=== PATIENT | female | born 1945 | race Caucasian/White ===

== ENCOUNTER → 2016-06-23 | Outpatient (CLI) | payer OTHER ==
[~2016-06-23] MED LIST: ACET-1138 PO; ACET-24 PO; AMOX500C3 PO; AMT50 PO; ASPEC325 PO; CALC500C70 PO; FAMO20TA11 PO; LISI-787 PO; MULT-506 PO; NAPR1TAB48 PO; OMEG10007 PO; TNR50 PO; ULT50X PO; ZCR20 PO; [UNRECOGNIZED DRUG - CODE] PO
[2016-06-23 11:16] LABS: ALT/SGPT 55 U/L (12-78); AST/SGOT 26 U/L (15-37); BLOOD UREA NITROGEN 16 mg/dl (7-18); BUN/CREATININE RATIO 17.5 (10-20); CALCIUM 9.9 mg/dl (8.5-10.1); CARBON DIOXIDE 32 mmol/L (21-32); CHLORIDE 104 mmol/L (98-107); CREATININE 0.93 mg/dl (0.60-1.20); GLUCOSE 106 mg/dl (70-99); POTASSIUM 4.5 mmol/L (3.5-5.1); SODIUM 141 mmol/L (136-145)
[2016-06-23 11:19] LABS: ALB/GLOB RATIO 1.3 (0.9-2); ALKALINE PHOSPHATASE 61 U/L (45-117)
== END | disposition home or self-care (01) ==
LOC: C.LAB 09:38
PROVIDERS: ATTEND Family Medicine
DX: R74.8 Abnormal levels of other serum enzymes (principal)

== ENCOUNTER 2016-07-23 08:15 | Inpatient (IN) | payer OTHER ==
[2016-06-23 08:52] VITALS: BMI 35.0
--- NOTE | 2016-06-23 09:33 | PAT Medication Instructions ---
Service Date Jun 23, 2016. Current Home Medication List Amitriptyline Hcl (Elavil), 50 MG PO HS Amoxicillin (Amoxil), 4 CAP PO before dental visit Atenolol (Atenolol), 1 TAB PO HS Calcium/Vitamin D (Os-Eric 500 Plus D), 1 TAB PO QAM Famotidine (Pepcid), 20 MG PO HS Fish Oil (Gillette-3), 1 CAP PO QAM Lisinopril/Hctz (Zestoretic 20MG/12.5MG), 1 TAB PO QAM Multivitamin (Multivitamin), 1 TAB PO QAM Naproxen (Naprosyn), 375 MG PO BID Simvastatin (Simvastatin), 1 TAB PO HS Medication Instructions For Your Scheduled Surgery - Hold the following medications 7-10 days prior to surgery per surgeon instructions: Naproxen (Naprosyn), 375 MG PO BID. Fish Oil (Gillette-3), 1 CAP PO QAM - Hold the following medications the morning of surgery: Multivitamin (Multivitamin), 1 TAB PO QAM Lisinopril/Hctz (Zestoretic 20MG/12.5MG), 1 TAB PO QAM Calcium/Vitamin D (Os-Eric 500 Plus D), 1 TAB PO QAM Amoxicillin (Amoxil), 4 CAP PO before dental visit - Take the following medications as scheduled the night before surgery: Simvastatin (Simvastatin), 1 TAB PO HS Famotidine (Pepcid), 20 MG PO HS Atenolol (Atenolol), 1 TAB PO HS Amitriptyline Hcl (Elavil), 50 MG PO HS If you have any questions please call us at [phone] or [phone] ( [place]) or [phone]
--- NOTE | 2016-06-23 10:09 | DIAGNOSTIC IMAGING REPORT ---
CHEST PREADMISSION(PA/LAT) CLINICAL HISTORY: PAT preoperative evaluation COMPARISON STUDY: No previous studies for comparison. FINDINGS: Mild diffuse parenchymal fibrosis. No acute infiltrate. Diaphragms smooth. IMPRESSION: Chronic parenchymal fibrosis. No acute process. Electronically signed by: Abhijit Oliveira M.D. 06/23/2016 10:08 AM Dictated Date/Time: 06/23/2016 10:07 AM
[2016-06-23 10:54] LABS: BASO % 0.7 %; BASO ABS # 0.07 K/uL (0-0.2); COMPLETE YES; HEMATOCRIT 45.6 % (37-47); IG% 0.2 %; LYMPH % 15.7 %; LYMPH ABS # 1.54 K/uL (1.2-3.4); MEAN CELL VOLUME 88.2 fL (80-100); MEAN CORPUSCULAR HEMOGLOBIN 30.8 pg (25-34); MEAN CORPUSCULAR HGB CONC 34.9 g/dl (32-36); MEAN PLATELET VOLUME 9.6 fL (7.4-10.4); MONO % 6.7 %; NEUT % 73.7 %; PLATELET COUNT 232 K/uL (130-400); RED BLOOD COUNT 5.17 M/uL (4.2-5.4); WHITE BLOOD COUNT 9.84 K/uL (4.8-10.8)
[2016-06-23 11:13] LABS: PROTHROMBIN TIME (PATIENT) 10.8 SECONDS (9.0-12.0)
--- NOTE | 2016-07-17 10:48 | HISTORY & PHYSICAL EXAMINATION ---
DATE OF ADMISSION: 07/23/2016 CHIEF COMPLAINT: Right knee pain. HISTORY OF PRESENT ILLNESS: A 71-year-old female who presents for surgical treatment of her right knee. She has got a fairly long history of bilateral knee pain and discomfort, right side greater than left. She has been through extensive conservative treatment including oral medicines as well as injections. The shots have become less successful over time. The left side is more manageable. The right side has not been. She describes pain all the time. The more she walks, the more she hurts. She limps more as the day goes on. She would like to have her right knee replaced. Of note, the patient does have a history of a left hip replacement done by Dr. Jara in 2000, its got a a little bit of polyethylene wear and fairly mild pain on that side. PAST MEDICAL HISTORY: 1. Hypertension. 2. Elevated cholesterol. 3. Obesity with a BMI of 35. 4. Gastroesophageal reflux disease. 5. Arthritis. 6. Fatty liver disease. PREVIOUS SURGICAL HISTORY: Include: 1. Cholecystectomy. 2. Tubal ligation. 3. Left hip replacement done by Dr. Jara 2000. ALLERGIES: EPINEPHRINE. CURRENT MEDICINES: 1. Lisinopril/hydrochlorothiazide 20/12.5 once a day. 2. Naproxen 325 twice a day. 3. Simvastatin 20 mg a day. 4. Amitriptyline 50 mg a day. 5. Atenolol 50 mg a day. 6. Calcium with Vitamin D. 7. Amoxicillin before dental work. SOCIAL HISTORY: A 71-year-old female. She is . Medical doctor is Dr. Nicolas. FAMILY HISTORY: Noncontributory. REVIEW OF SYSTEMS: Negative for diabetes, neurologic problems, vascular problems or bleeding disorders. No history of DVT or PE. PHYSICAL EXAMINATION: GENERAL: Reveals a healthy pleasant, middle-aged female. She looks to be in reasonably good health. HEAD, EYES, EARS, NOSE, AND THROAT EXAMINATION: Benign. NECK: Supple. No lymphadenopathy. LUNGS: Clear to auscultation. HEART: Regular rate and rhythm. ABDOMEN: Soft, nontender, nondistended. EXTREMITY EXAMINATION: Grossly neurovascularly intact except as follows: Examination of both lower extremities reveals the patient walks with a slight bit of a limp. Examination of the right knee reveals slight varus alignment. She does have bony hypertrophy medially. Range of motion about 5 degrees short of full extension to about 120 degrees of flexion. Kind of stiff on flexion. Small knee effusion. X-RAYS: X-rays of the right knee revealed advanced right knee tricompartmental DJD. She has got complete loss of her medial joint space. She has got osteophytes off the medial femoral condyle and medial tibial plateau. He has multiple loose bodies in her knee as well. ASSESSMENT: A 71-year-old female with advanced bilateral knee degenerative joint disease, right side more symptomatic than the left. She is status post a hip replacement on the left side with some poly wear. Her right knee is clearly limiting her more than anything and she would like to have it replaced. She has failed conservative treatment. PLAN: We are going to take her to the operating room and do a right total knee replacement. The risks and benefits of this procedure were explained to the patient and include but not limited to DVT, PE, , infection, neurological injury, vascular injury, bleeding, pain, limited range of motion, stiffness, failure to relieve her symptoms, incomplete relief of symptoms, need for further surgery in the future, fracture, leg length inequality, nerve palsy, persistent pain, etc. The patient understands and desires to proceed. Informed consent was obtained. We did talk to her about holding her lisinopril the morning of surgery. She should take her atenolol. She has also been instructed to stop her Naprosyn 10 days preop. As far as discharge plans, she is planning to be discharged to home using a [facility] home health program. Her is going to assist in her care. I will see her back 2 weeks postop.
[2016-07-23] VITALS (9 sets, daily range): BP systolic 112–157; BP diastolic 64–76; PULSE 65–82; TEMP 36.4–36.9; O2SAT 96–100; Ht 162.6 cm; Wt 92.6 kg
[~2016-07-23] VITALS: Ht 162.6 cm; Wt 92.6 kg
[~2016-07-23 08:15] MED LIST changes: -ACET-1138 PO; -ACET-24 PO; +ACETAMINOPHEN 500 MG TAB PO SCH; -ASPEC325 PO; +BUPIVACAINE 0.25% 30 ML VIAL ONE; +BUPIVACAINE 0.5 % 5 MG/1 ML PF 10ML VIAL ONE; +BUPIVACAINE LIPOSOME 266 MG, BUPIVACAINE/EPINEPHRINE INJ 50 ML, SODIUM CHLORIDE 0.9% PF... INFIL SCH; +CEFAZOLIN 2000 MG/60 ML D5W 60 ML IV SCH; +FAMOTIDINE 20 MG TAB PO SCH; +GABAPENTIN 300 MG CAP PO SCH; +LACTATED RINGER'S 1000ML 1,000 ML IV SCH; +LACTATED RINGER'S 1000ML 500 ML IV ONE; +LACTATED RINGER'S 1000ML IV SCH; +METOCLOPRAMIDE HCL 10 MG TAB PO SCH; +SCOPOLAMINE 1.5 MG TDSY TD SCH; +TRANEXAMIC ACID INJ 1,000 MG in SODIUM CHLORIDE 0.9% 100ML 100 ML IV SCH; -ULT50X PO; -[UNRECOGNIZED DRUG - CODE] PO
--- NOTE | 2016-07-23 09:30 | History & Physical Bridge Note ---
H&P Re-Evaluation Bridge Note: I have examined the patient, reviewed the History & Physical and in the interval since the performance of the History & Physical I have noted the following changes of clinical significance: No changes noted
[2016-07-23] MEDS ORDERED: ATROPINE SULFATE 0.1 MG/ML 5ML SYR IV PRN (10:30)
[2016-07-23] MEDS ORDERED: EpHEDrine SULFATE INJ 50 MG/ML AMP IV PRN (10:30)
[2016-07-23] MEDS ORDERED: MEPERIDINE HCL 25 MG/ML CARP IV PRN (10:30)
[2016-07-23] MEDS ORDERED: ONDANSETRON INJ 2 MG/ML 2 ML VIAL IV PRN ×2 (10:30→14:30)
[2016-07-23] MEDS ORDERED: HYDROmorphone INJ 1 MG/ML SYR IV PRN (10:30)
[2016-07-23] MEDS ORDERED: LABETALOL HCL IV 5 MG/ML 20ML IV PRN (10:30)
[2016-07-23] MEDS ORDERED: FENTANYL CITRATE INJ 50 MCG/1 ML 2 ML VIAL IV PRN (10:30)
[2016-07-23] MEDS ORDERED: LIDOCAINE HCL 2% 2 ML VIAL (20MG/ML) ONE (10:50)
[2016-07-23] MEDS ORDERED: PROPOFOL IV EMULSION 10 MG/ML 20 ML VIAL IV ONE (10:50)
[2016-07-23] MEDS ORDERED: MIDAZOLAM HCL 1 MG/ML 2ML VIAL ONE ×2 (11:01)
[2016-07-23] MEDS ORDERED: BACITRACIN 50000 UNIT VIAL ONE (12:34)
[2016-07-23] MEDS ORDERED: BUPIVACAINE/EPINEPHRINE 0.25% 1:200,000 30 ML VIAL ONE (12:34)
[2016-07-23] MEDS ORDERED: SODIUM CHLORIDE 0.9% PF 50 ML VIAL ONE (12:34)
[2016-07-23] MEDS ORDERED: BUPIVACAINE LIPOSOME 1/3% 266 MG/20 ML VIAL INFIL ONE (12:34)
--- NOTE | 2016-07-23 14:25 | [facility] Post Operative Brief Note ---
Immediate Operative Summary Operative Date July 23, 2016. Pre-Operative Diagnosis Right Knee Advanced Tricompartmental Degenerative Joint Disease Post-Operative Diagnosis Right Knee Advanced Tricompartmental Degenerative Joint Disease Procedure(s) Performed Right Total Knee Arthroplasty Surgeon Dr. Richardson Movie Star Surgeon(s) ASHWIN Bell Estimated Blood Loss 50 cc Findings Right Knee DJD Fluids (cc crystalloids) 1600 cc Specimens A. Right Knee Bone and Tissue Drains None Anesthesia Spinal Complication(s) None Disposition Recovery Room / PACU
[2016-07-23] MEDS ORDERED: SILVER SULFADIAZINE 1% CR 50 GM JAR EXT PRN (14:30)
[2016-07-23] MEDS ORDERED: ALUMINUM/MAGNESIUM/SIMETH (MAALOX MAX) 30 ML UDC PO PRN (14:30)
[2016-07-23] MEDS ORDERED: HYDROmorphone INJ 0.5 MG/0.5 ML SYR IV PRN (14:30)
[2016-07-23] MEDS ORDERED: MAGNESIUM HYDROXIDE SUSP 30 ML UDC PO PRN (14:30)
[2016-07-23] MEDS ORDERED: TRAMADOL HCL 50 MG TAB PO PRN (14:30)
[2016-07-23] MEDS ORDERED: METOCLOPRAMIDE HCL INJ 5 MG/ML 2 ML VIAL IV PRN (14:30)
[2016-07-23] MEDS ORDERED: ZOLPIDEM TARTRATE 5 MG TAB PO PRN (14:30)
[2016-07-23] MEDS ORDERED: BISACODYL 10 MG SUPP PR PRN (14:30)
--- NOTE | 2016-07-23 14:53 | DIAGNOSTIC IMAGING REPORT ---
RIGHT KNEE 1 OR 2 VIEWS ROUTINE CLINICAL HISTORY: AP/LATERAL IN PACU RIGHT KNEE Right joint replacement COMPARISON: None. DISCUSSION: Anatomic alignment status post total right knee replacement. Good contact between prosthetic and underlying bone. Expected soft tissue postoperative change. IMPRESSION: Anatomic alignment status post total right knee replacement. Electronically signed by: Abhijit Oliveira M.D. 07/23/2016 2:52 PM Dictated Date/Time: 07/23/2016 2:51 PM
--- NOTE | 2016-07-23 15:40 | Anesthesiology Progress Note ---
Anesthesia Post Op Note Date & Time July 23, 2016 at 15:40 Vital Signs Pain Intensity: 0 Vital Signs Past 12 Hours Date Time Temp Pulse Resp B/P Pulse Ox O2 Delivery O2 Flow Rate FiO2 07/23/16 15:30 108/61 07/23/16 15:26 73 16 98 07/23/16 15:26 74 16 07/23/16 15:21 73 15 07/23/16 15:21 73 15 97 07/23/16 15:16 72 16 96 07/23/16 15:16 73 16 07/23/16 15:15 123/52 07/23/16 15:13 73 16 98 07/23/16 15:13 73 16 07/23/16 15:10 100/59 07/23/16 15:08 77 17 100 07/23/16 15:08 77 17 07/23/16 15:05 129/45 07/23/16 15:03 36.6 07/23/16 15:03 72 18 99 07/23/16 15:03 72 18 07/23/16 15:02 74 18 07/23/16 15:02 73 18 97 07/23/16 15:00 106/57 07/23/16 14:57 78 19 100 07/23/16 14:57 77 19 07/23/16 14:55 102/48 07/23/16 14:52 76 15 100 07/23/16 14:52 78 15 07/23/16 14:50 111/49 07/23/16 14:47 78 19 100 07/23/16 14:47 77 19 07/23/16 14:46 75 17 07/23/16 14:46 74 17 100 07/23/16 14:45 107/76 07/23/16 14:41 75 18 100 07/23/16 14:41 80 18 07/23/16 14:40 76 17 07/23/16 14:40 77 17 113/54 100 07/23/16 14:35 80 19 114/76 100 07/23/16 14:35 81 19 07/23/16 14:30 36.2 85 20 110/52 99 Mask 10 07/23/16 14:30 83 17 07/23/16 14:30 83 17 110/52 100 07/23/16 08:35 36.7 82 18 141/76 96 Room Air Notes Mental Status: alert / awake / arousable, participated in evaluation Pt Amnestic to Procedure: Yes Nausea / Vomiting: adequately controlled Pain: adequately controlled Airway Patency, RR, SpO2: stable & adequate BP & HR: stable & adequate Hydration State: stable & adequate Neuraxial Anesthesia: was administered, sensory block is resolving Anesthetic Complications: no major complications apparent
[2016-07-23] MEDS: CHECK SCOPOLAMINE PATCH PLACEMENT SCH ×2 (16:00→23:38)
[2016-07-23] MEDS: ACETAMINOPHEN 500 MG TAB PO SCH ×2 (16:37→23:38)
[2016-07-23] MEDS: D5W AND 1/2NSS + 20MEQ KCL 1,000 ML IV SCH (16:37)
[2016-07-23] MEDS: FERROUS GLUCONATE 324 MG TAB PO SCH (17:45)
[2016-07-23] MEDS: KETOROLAC TROMETHAMINE 15 MG/ML VIAL IV. SCH ×2 (17:46→23:38)
--- NOTE | 2016-07-23 19:22 | PROGRESS NOTE ---
DATE: 07/23/2016 SUBJECTIVE: A 71-year-old white female postop from a right knee replacement. She is just starting to get feeling in her leg. Denies any chest pain or shortness of breath. Feeling pretty tired and fatigued. OBJECTIVE: VITAL SIGNS: Temperature 36.4. Vital signs stable. GENERAL: Reveals a healthy pleasant elderly female. She is lying flat in bed. Looks pretty groggy. LUNGS: Clear to auscultation. HEART: Regular rate and rhythm. ABDOMEN: Soft, nontender, nondistended. EXTREMITIES: Grossly neurovascularly intact except as follows: Examination of the right leg reveals it to be well aligned. She can dorsiflex and plantarflex her foot appropriately. She is neurologically intact. IMAGING: X-rays of the right knee from recovery room reviewed. It shows a cemented stabilized total knee arthroplasty. Components looked to be in good position. No signs of problems. ASSESSMENT: A 71-year-old white female postop from a right knee replacement, doing pretty well. Just starting to get the feeling back in her leg, but she is neurologically and clinically intact. Pain is controlled. PLAN: 1. DVT prophylaxis including thigh-high TEDs, SCDs, and aspirin twice a day. 2. PT/OT. Weightbearing as tolerated. Right total knee protocol. 3. Pain control. Doing well with current pain regimen. 4. Disposition: She is planning to be discharged to home likely with some home health once adequately recovered. 5. IV antibiotics 24 hours.
[2016-07-23] MEDS: CEFAZOLIN IV 2,000 MG in DEXTROSE 5% 50ML 50 ML IV SCH (19:29)
[2016-07-23] MEDS ORDERED: TRANEXAMIC ACID INJ 1,000 MG in SODIUM CHLORIDE 0.9% 100ML 100 ML IV SCH (20:30)
[2016-07-23] MEDS: AMITRIPTYLINE HCL 50 MG TAB PO SCH (21:00)
[2016-07-23] MEDS: ASPIRIN 325 MG ECTAB PO SCH (21:00)
[2016-07-23] MEDS: FAMOTIDINE 20 MG TAB PO SCH (21:00)
[2016-07-23] MEDS: SIMVASTATIN 20 MG TAB PO SCH (21:00)
[2016-07-23] MEDS: DOCUSATE SODIUM 100 MG CAP PO SCH (21:00)
--- NOTE | 2016-07-23 22:39 | OPERATIVE REPORT ---
DATE OF OPERATION: 07/23/2016 SURGEON: Dwight Richardson MD VIDEO SYSTEM REPAIRER: Robert Luna PA-C. PREOPERATIVE DIAGNOSIS: Right knee degenerative joint disease. POSTOPERATIVE DIAGNOSIS: Same. PROCEDURE PERFORMED: Right cemented posterior stabilized total knee arthroplasty. COMPLICATIONS: None. ESTIMATED BLOOD LOSS: 50 mL FLUID REPLACEMENT: 1600 mL crystalloid fluid replacement. TOURNIQUET TIME: 57 minutes at 300 mmHg. ANESTHESIA: Spinal with adductor canal block. DRAINS: None. SPECIMENS: Right knee sent for pathology. OPERATIVE INDICATIONS: The patient is a 71-year-old female, who has had a fairly long history of bilateral knee pain and discomfort. She has been through extensive conservative care. Both knees are hurting quite a bit, but the right knee was a bit worse than the left. She elected to proceed with right total knee arthroplasty. OPERATIVE FINDINGS: Operative findings revealed advanced right knee DJD. She had extensive grade 4 changes in the medial compartment. She had diffuse grade 4 changes elsewhere. She had multiple loose bodies throughout the knee. A moderate-sized knee effusion. OPERATIVE IMPLANTS: Operative implants consisted of: 1. A Biomet Vanguard size 62.5 right posterior stabilized femoral component. 2. A Biomet size 67 tibial tray. 3. A 10 mm posterior stabilized polyethylene insert. 4. A 31 x 8 all poly patella. OPERATIVE PROCEDURE: The patient taken to the operating room, identified and placed on the operating table in supine position. All contact areas were appropriately padded. IV antibiotics were provided by the anesthesia team. A spinal anesthetic had been implemented in holding area. Gonzales catheter was placed in a sterile fashion. The right lower extremity was then prepped and draped in the usual sterile fashion. The right leg was elevated and exsanguinated with Esmarch and tourniquet was placed at 300 mmHg. An anterior approach to the right knee was then performed through a longitudinal incision centered over the patella. Sharp dissection was carried out through the subcutaneous tissues down to the level of the extensor mechanism. A medial parapatellar arthrotomy incision was made. Some subperiosteal dissection was carried out medially. A fat pad was resected from beneath the patellar tendon. The lateral patellofemoral ligament was released. The patella was everted and knee was flexed. The osteophytes were taken off the distal femur. The ACL was absent. The PCL was released from the distal femur and the tibia subluxated anteriorly. The external tibial alignment jig was then placed in the anterior face of the tibia and adjusted 16 mm medially. A proximal tibial cut was made to remove about 2-3 mm of bone from the most deficient aspect of the medial tibial plateau. Tibia was sized to a size 67. Some osteophytes were taken off medial and posteromedially. Attention was then drawn to the femur. The distal femur was entered with a sharp drill bit. The intramedullary canal was suctioned. A right 5-degree valgus cutting guide was placed. A distal femoral cutting block was pinned in place. A distal femoral cut was made to take an additional 3 mm of bone off the distal femur. The femur was then sized to a size 62.5. We did downsize this slightly. The AP cutting block was pinned parallel to the epicondylar axis, which was 3 degrees of external rotation. The anterior cut, anterior chamfer, posterior cut, posterior chamfer cuts were made. Box cutting guide was placed and adjusted slightly laterally. The box cut was made. The knee was flexed. The remnants of the medial and lateral menisci were excised. The osteophytes were taken off the posterior aspect of the femur. There were multiple loose bodies in the back of her knee, which were removed. A trial femoral component was placed. The tibial tray was pinned in maximum external rotation and drill and stem punch were used to create defect in the proximal tibia for the tibial tray. The knee was then trialed and the 10-mm insert fit most appropriately. Attention was then drawn to the patella. The patella was cleaned of all soft tissues. Patella was very thin. Patellar thickness measured 15 mm and was cut down to about 11. It was sized to a size 31 patella. Lug holes were drilled for the 31 patella. A lateral osteophyte was removed. Patella button was placed. Knee was taken through range of motion and the patella tracked nicely with no thumbs test. Attention was then drawn toward placement of permanent components. All trial components were removed. A bone plug was placed in the distal femur to limit blood loss. A double batch of Palacos G cement was mixed. A right size 62.5 posterior stabilized component, a size 67 tibial tray, a 10-mm posterior stabilized polyethylene insert, and a 31 x 8 all poly patella were then cemented in place. Knee was brought out into full extension until the cement hardened. A final cement check was then performed. The pericapsular tissues were injected with a total of 100 mL of a combination of 20 mL of Exparel, 30 mL normal saline, 50 mL of 0.25% Marcaine with epinephrine. The patient did receive 1 gram of tranexamic acid. The tourniquet was then let down for final tourniquet time 57 minutes. Hemostasis was assured with use of electrocautery. The extensor mechanism was then closed with a combination of #1 PDS suture and #1 Vicryl suture in a [id number] fashion. The extensor mechanism was checked and found to be intact. The subcutaneous tissues were then closed with 2-0 Dexon suture in a buried interrupted fashion. The skin was closed with skin deedee. The leg was then cleaned and dried and a sterile dressing with Xeroform, 4 x 4, sterile cast padding and Mateo bandage were applied. The patient then transferred to the recovery room in stable condition. The patient tolerated the procedure well with no complications. All needle and sponge counts were correct at the end of the operation. I attest to the content of the Intraoperative Record and any orders documented therein. Any exceptio ns are noted below.
[2016-07-24] VITALS (8 sets, daily range): BP systolic 113–146; BP diastolic 62–83; PULSE 67–89; TEMP 35.4–37; O2SAT 92–99
[2016-07-24] MEDS: D5W AND 1/2NSS + 20MEQ KCL 1,000 ML IV SCH ×2 (01:48→12:02)
[2016-07-24] MEDS: CEFAZOLIN IV 2,000 MG in DEXTROSE 5% 50ML 50 ML IV SCH (03:54)
[2016-07-24] MEDS: KETOROLAC TROMETHAMINE 15 MG/ML VIAL IV. SCH ×4 (05:34→23:28)
[2016-07-24 06:26] LABS: HEMATOCRIT 39.1 % (37-47); MEAN CELL VOLUME 89.7 fL (80-100); MEAN CORPUSCULAR HGB CONC 34.5 g/dl (32-36); MEAN PLATELET VOLUME 9.2 fL (7.4-10.4); PLATELET COUNT 213 K/uL (130-400); RED BLOOD COUNT 4.36 M/uL (4.2-5.4); WHITE BLOOD COUNT 11.01 K/uL (4.8-10.8)
[2016-07-24 06:57] LABS: BUN/CREATININE RATIO 11.9 (10-20); CALCIUM 8.6 mg/dl (8.5-10.1); CREATININE 0.91 mg/dl (0.60-1.20); POTASSIUM 4.3 mmol/L (3.5-5.1)
[2016-07-24] MEDS: CHECK SCOPOLAMINE PATCH PLACEMENT SCH ×3 (08:26→23:07)
[2016-07-24] MEDS: FERROUS GLUCONATE 324 MG TAB PO SCH ×3 (08:27→17:57)
[2016-07-24] MEDS: ACETAMINOPHEN 500 MG TAB PO SCH ×3 (08:27→23:28)
--- NOTE | 2016-07-24 08:45 | PROGRESS NOTE ---
DATE: 07/24/2016 DATE: 07/24/2016. SUBJECTIVE: A 71-year-old white female postop day 1 from right knee replacement. She is doing pretty well. Had quite a bit of pain last evening but doing better this morning. No chest pain or shortness of breath. Not feeling dizzy or lightheaded. OBJECTIVE: VITAL SIGNS: Temperature 36.5. Vital signs stable. PHYSICAL EXAMINATION: GENERAL: Reveals a pleasant elderly female. She is lying in bed, looks reasonably comfortable. EXTREMITIES: Examination of right leg reveals the dressing to be clean, dry and intact. She can dorsiflex and plantarflex her foot appropriately. She is neurologically intact. LABORATORY DATA: Hemoglobin 13.5. Hematocrit 39.1. White cell count 11.01. Electrolytes are stable. ASSESSMENT: A 71-year-old white female postop day 1 from a right total knee replacement, doing reasonably well. Pain is under reasonable control. She is neurologically intact. PLAN: 1. DVT prophylaxis including thigh-high TEDs, SCDs, and aspirin twice a day. 2. PT/OT. Weightbearing as tolerated. Right total knee protocol. 3. Pain control. Doing pretty well with current pain regimen. We are going to have to limit narcotics to avoid confusion issues and side effects. 4. Disposition. She is planning to be discharged home with likely some home health once adequately recovered.
[2016-07-24] MEDS ORDERED: MULTIVITAMIN TAB PO SCH (09:00)
[2016-07-24] MEDS: MULTIVITAMIN TAB PO SCH (09:20)
[2016-07-24] MEDS: PANTOprazole SOD 40 MG TAB PO SCH (09:20)
[2016-07-24] MEDS: DOCUSATE SODIUM 100 MG CAP PO SCH ×2 (09:21→21:29)
[2016-07-24] MEDS: ASPIRIN 325 MG ECTAB PO SCH ×2 (09:21→21:29)
[2016-07-24] MEDS: CALCIUM 600MG + VIT D 400 IU TAB PO SCH (09:21)
[2016-07-24] MEDS ORDERED: ULT50X PO (19:35)
[2016-07-24] MEDS ORDERED: ACET-1138 PO (19:35)
[2016-07-24] MEDS ORDERED: ASPEC325 PO (19:35)
--- NOTE | 2016-07-24 19:38 | Discharge Instructions ---
Discharge Instructions Date of Service July 24, 2016. Admission Reason for Admission: RightKnee Pain, Localized, Primary Osteoarthritis Discharge Discharge Diagnosis / Problem: Right Knee Replacement Discharge Goals Goal(s): Decrease discomfort, Improve function, Increase independence, Improve disease control, Therapeutic intervention Activity Recommendations Activity Limitations: per Instructions/Follow-up section Weightbearing Status: Right weightbearing . Instructions / Follow-Up Instructions / Follow-Up ACTIVITY RECOMMENDATIONS: Physical Therapy: * You will go to physical therapy three times each week for four to six weeks after your surgery in order to regain your knee range of motion and to retrain your knee to work properly. * It is just as important to make sure you are getting your knee perfectly straight as it is to regain your knee bend. * Taking a pain pill an hour before therapy can help you have a more productive and comfortable therapy session. Home Exercise: * You were shown a series of exercises (heel props, heel slides, etc.) in the hospital. Do these exercises three to four times each day including the exercises you were shown in physical therapy. Walking: * Get up and walk several times each day. For the first four weeks, try not to stand or walk for more than one hour at a time. If you do stand or walk for more than one hour, you will not hurt anything, but your knee and leg will likely swell. * As you feel comfortable, you may change from the walker or crutches to a cane and then to independent walking. MEDICATIONS: New Medicine: * You will likely be taking one or more of these medications: 1. Tramadol - A quick and shorter-acting pain medication. Take one to two tablets every four to six hours to lessen your pain. 2. Aspirin - Thins your blood to lessen the chance of forming a blood clot. * The most common side effects of pain medicine and iron are nausea and constipation. If nausea or constipation is too much of a problem or if you have any questions about your new medicines or doses, call [facility] at [phone]. We will try to help you manage these issues. VERY IMPORTANT TO READ AND REVIEW" Pain: * The immediate post-operative period after knee replacement surgery is often quite painful. * You are given a prescription for pain medicine. You should take it, as directed, when you need it, especially before physical therapy and before going to bed. Pain that interferes with sleep is very common and can last several months. * You will likely need pain medicine for the first four to six weeks. It will not stop all of the pain. The pain will lessen and as you feel better, you may change to milder pain medicine such as Tylenol. * The most common side effects of pain medicine are nausea and constipation, so don't take more than you need. SPECIAL CARE INSTRUCTIONS: TEDs/Elastic Stockings: * The white elastic stockings help limit swelling and prevent blood clots from forming in your legs. The more you wear them, the more they work. * Wear them for six weeks after knee replacement surgery and four weeks after partial knee replacement. Prevention of Infection: * Take antibiotics one hour before any dental cleaning, dental work, urological procedure, gastrointestinal procedure or any invasive surgery in order to prevent your new joint from getting infected. * You may get the antibiotics from the doctor performing the procedure or you may call our office at before and we will call in a prescription to the pharmacy of your choice. Things to Watch For: * Drainage from the incision site that occurs more than one week after your surgery. * Severely increased knee/leg pain or swelling. * Increased redness at the incision site. * Fever above 102 degrees Fahrenheit. * Unusual chest pain or shortness of breath. * Unusual pain or burning with urination. Call [facility] at with any of the above problems or if you have any questions about your medicines or recovery. FOLLOW UP VISIT: Make an appointment to see your doctor for approximately two weeks after surgery for a progress check and staple removal by calling the office at . Current Hospital Diet Patient's current hospital diet: Regular Diet Discharge Diet Recommended Diet: Regular Diet Procedures Procedures Performed: Right Total Knee Arthroplasty Pending Studies Studies pending at discharge: no Medical Emergencies . Who to Call and When: Medical Emergencies: If at any time you feel your situation is an emergency, please call [phone] immediately. . Non-Emergent Contact Non-Emergency issues call your: Surgeon . "Provider Documentation" section prepared by Dwight Richardson. . VTE Core Measure Inpt VTE Proph given/why not?: Other Anticoagulation, T.E.D. Stockings, SCD's
[2016-07-24] MEDS: AMITRIPTYLINE HCL 50 MG TAB PO SCH (21:51)
[2016-07-24] MEDS: SIMVASTATIN 20 MG TAB PO SCH (21:51)
[2016-07-24] MEDS: FAMOTIDINE 20 MG TAB PO SCH (21:52)
[2016-07-25] MEDS: KETOROLAC TROMETHAMINE 15 MG/ML VIAL IV. SCH (05:23)
[2016-07-25 06:31] VITALS: BP 117/70; PULSE 65; TEMP 36.5; O2SAT 95
[2016-07-25] MEDS: ACETAMINOPHEN 500 MG TAB PO SCH (07:36)
[2016-07-25] MEDS: CALCIUM 600MG + VIT D 400 IU TAB PO SCH (07:36)
[2016-07-25] MEDS: FERROUS GLUCONATE 324 MG TAB PO SCH (07:36)
[2016-07-25] MEDS: ASPIRIN 325 MG ECTAB PO SCH (07:37)
[2016-07-25] MEDS: PANTOprazole SOD 40 MG TAB PO SCH (07:37)
[2016-07-25] MEDS: MULTIVITAMIN TAB PO SCH (07:37)
[2016-07-25] MEDS: DOCUSATE SODIUM 100 MG CAP PO SCH (08:21)
--- NOTE | 2016-07-25 09:24 | PROGRESS NOTE ---
DATE: 07/25/2016 DATE: 07/25/2016. SUBJECTIVE: A 71-year-old white female postop day 2 from right knee replacement. She is doing pretty well. Pain is a little better this morning. No chest pain or shortness of breath. Not feeling dizzy or lightheaded. OBJECTIVE: VITAL SIGNS: Temperature is 36.5. Vital signs stable. PHYSICAL EXAMINATION: GENERAL: Reveals a healthy, pleasant middle-aged female. She is sitting up in bed, looks pretty comfortable. LUNGS: Clear to auscultation. HEART: Regular rate and rhythm. ABDOMEN: Soft, nontender, nondistended. EXTREMITY EXAMINATION: Grossly neurovascularly intact except as follows: Examination of the right leg reveals the leg to be well aligned. Dressing is clean, dry and intact. She can dorsiflex and plantarflex her foot appropriately. She is neurologically intact. ASSESSMENT: A 71-year-old white female postop day 2 from right knee replacement, doing pretty well. Pain has been improved. PLAN: 1. DVT prophylaxis including thigh-high TEDs, SCDs, and aspirin twice a day. 2. PT/OT. Weightbearing as tolerated. Right total knee protocol. 3. Pain control. Doing well with current pain regimen. 4. Disposition. Plan to discharge to home with some home health if therapy goes okay today and adequately recovered.
[2016-07-25 09:36] VITALS: BP 117/70; PULSE 65; TEMP 36.5; O2SAT 95
--- NOTE | 2016-07-28 09:28 | DISCHARGE SUMMARY ---
ADMITTING PHYSICIAN: Dr. Richardson. ADMITTING DIAGNOSIS: Right knee degenerative joint disease. SURGERY PERFORMED: Right total knee arthroplasty. SECONDARY DIAGNOSIS: Noncontributory. CONSULTS: None obtained. HISTORY AND PHYSICAL EXAMINATION: Well documented in the patient's chart. HOSPITAL COURSE: The patient was admitted to [facility] on 07/23/2016 and underwent a right total knee arthroplasty. She tolerated the procedure well. There were no complications with the surgery. She was then transferred to PACU postoperatively and later to the orthopedic floor for further care. She was given Ancef and antibiotics prophylaxis. ANA LUISA hose stocking, SCDs and aspirin for DVT prophylaxis. Hemoglobin, hematocrit and vital signs were monitored during her hospital stay and remained stable. She did not require any blood transfusions. There were no complications. By postop day #2 she was tolerating a normal regular diet. Pain was well controlled with oral pain medication. She was participating in physical therapy. No signs of any DVTs or other complications. On postop day 2 she was discharged to home in good condition and set up with home health services. She was given printed discharge instructions including prescriptions for aspirin 325 mg b.i.d., Percocet for pain medication. She can continue with home medicines. Continue with physical therapy. She is weightbearing as tolerated on her left leg. Followup with Dr. Richarsdon in 10-12 days postoperative for suture removal and evaluation. Call sooner to the office if any other problems arise.
[2016-09-28] MEDS ORDERED: [UNRECOGNIZED DRUG - CODE] PO (11:13)
== END 2016-07-25 10:30 | disposition home health service (06) | DRG 470 ==
LOC: ENRESERVTM → ENRESERVDT → C.ACU 08:15 → C.3E 09:15
PROVIDERS: ADMIT Orthopaedic Surgery Sports Medicine; ATTEND Orthopaedic Surgery Sports Medicine
PROC: 0SRC0J9 Replacement of Right Knee Joint with Synthetic Substitute, Cemented, Open Approach (ICD-10-PCS; principal; 2016-07-23 10:30)
PROC: 0SCC0ZZ Extirpation of Matter from Right Knee Joint, Open Approach (ICD-10-PCS; principal; 2016-07-23 10:30)
DX: M17.0 Bilateral primary osteoarthritis of knee (principal); I10 Essential (primary) hypertension; E66.9 Obesity, unspecified; E78.00 Pure hypercholesterolemia, unspecified; Z79.899 Other long term (current) drug therapy; Z68.35 Body mass index [BMI] 35.0-35.9, adult; Z96.642 Presence of left artificial hip joint

== ENCOUNTER → 2016-10-14 | Outpatient (CLI) | payer OTHER ==
[~2016-10-14] MED LIST changes: +ACET-24 PO; -ACETAMINOPHEN 500 MG TAB PO SCH; +ASPEC325 PO; -BUPIVACAINE 0.25% 30 ML VIAL ONE; -BUPIVACAINE 0.5 % 5 MG/1 ML PF 10ML VIAL ONE; -BUPIVACAINE LIPOSOME 266 MG, BUPIVACAINE/EPINEPHRINE INJ 50 ML, SODIUM CHLORIDE 0.9% PF... INFIL SCH; -CEFAZOLIN 2000 MG/60 ML D5W 60 ML IV SCH; -FAMOTIDINE 20 MG TAB PO SCH; -GABAPENTIN 300 MG CAP PO SCH; -LACTATED RINGER'S 1000ML 1,000 ML IV SCH; -LACTATED RINGER'S 1000ML 500 ML IV ONE; -LACTATED RINGER'S 1000ML IV SCH; -METOCLOPRAMIDE HCL 10 MG TAB PO SCH; -NAPR1TAB48 PO; -SCOPOLAMINE 1.5 MG TDSY TD SCH; -TRANEXAMIC ACID INJ 1,000 MG in SODIUM CHLORIDE 0.9% 100ML 100 ML IV SCH; +ULT50X PO; +[UNRECOGNIZED DRUG - CODE] PO
[2016-10-14 13:09] LABS: BASO % 1.5 %; BASO ABS # 0.12 K/uL (0-0.2); COMPLETE YES; HEMATOCRIT 43.1 % (37-47); IG% 0.3 %; LYMPH % 19.9 %; LYMPH ABS # 1.55 K/uL (1.2-3.4); MEAN CELL VOLUME 90.5 fL (80-100); MEAN CORPUSCULAR HEMOGLOBIN 31.5 pg (25-34); MEAN CORPUSCULAR HGB CONC 34.8 g/dl (32-36); MEAN PLATELET VOLUME 9.3 fL (7.4-10.4); NEUT % 65.3 %; PLATELET COUNT 251 K/uL (130-400); RED BLOOD COUNT 4.76 M/uL (4.2-5.4); WHITE BLOOD COUNT 7.78 K/uL (4.8-10.8)
[2016-10-14 13:15] LABS: PROTHROMBIN TIME (PATIENT) 10.6 SECONDS (9.0-12.0)
[2016-10-14 14:12] LABS: BLOOD UREA NITROGEN 14 mg/dl (7-18); C-REACTIVE PROTEIN < 0.29 mg/dl (0-0.29); CALCIUM 9.5 mg/dl (8.5-10.1); CARBON DIOXIDE 30 mmol/L (21-32); CHLORIDE 103 mmol/L (98-107); GLUCOSE 92 mg/dl (70-99); POTASSIUM 4.3 mmol/L (3.5-5.1); SODIUM 141 mmol/L (136-145)
== END | disposition home or self-care (01) ==
LOC: C.LAB 10:34
PROVIDERS: ATTEND Orthopaedic Surgery Sports Medicine
DX: Z01.818 Encounter for other preprocedural examination (principal)

== ENCOUNTER 2016-10-26 06:28 | Inpatient (IN) | payer OTHER ==
[2016-09-28 11:14] VITALS: BMI 35.0
--- NOTE | 2016-10-21 17:54 | HISTORY & PHYSICAL EXAMINATION ---
DATE OF ADMISSION: 10/26/2016 CHIEF COMPLAINT: Left hip pain after hip replacement surgery. HISTORY OF PRESENT ILLNESS: This is a 71-year-old female who is now 16 years out from a left total hip replacement done by Dr. Jara. She did quite well for a quite some time, but has developed some increased pain and discomfort in her left hip area. She describes lateral hip pain, buttock pain and groin pain. X-rays show progressive polyethylene wear. She is now indicated for revision. Pain is moderate, but manageable, but the concern is a polyethylene wear. Of note, the patient did have a relatively recent right knee replacement and has done well from this. She is very happy with her knee. PAST MEDICAL HISTORY: 1. Hypertension. 2. Elevated cholesterol. 3. Obesity with a BMI of 35. 4. Gastroesophageal reflux disease. 5. Arthritis. 6. Fatty liver disease. PAST SURGICAL HISTORY: 1. Cholecystectomy. 2. Tubal ligation. 3. Left hip replacement by Dr. Jara on 06/09/2000. 4. Right total knee replacement. ALLERGIES: EPINEPHRINE. CURRENT MEDICINES: Include, 1. Lisinopril/hydrochlorothiazide 20/12.5 once a day. 2. Naproxen 325 twice a day. 3. Simvastatin 20 mg. 4. Amitriptyline 50 mg a day. 5. Atenolol 50 mg. 6. Calcium with vitamin D. 7. Amoxicillin before dental work. SOCIAL HISTORY: A 71-year-old female. She is . Medical doctor is Dr. Nicolas. FAMILY HISTORY: Noncontributory. REVIEW OF SYSTEMS: Negative for diabetes, neurologic problems, vascular problems, or bleeding disorders. Denies any chest pain or shortness of breath. No history of DVT or PE. PHYSICAL EXAMINATION: GENERAL: Reveals a healthy pleasant, middle-aged female. Looks to be in good health. HEENT: Benign. NECK: Supple. No lymphadenopathy. LUNGS: Clear to auscultation. HEART: Regular rate and rhythm. ABDOMEN: Soft, nontender, and nondistended. EXTREMITIES: Grossly neurovascularly intact except as follows. Physical examination of the left hip reveals a well-healed incision. She may be just a trace bit shorter on the left compared to the right. She has got no particular pain with hip motion. She is neurologically intact. X-RAYS: X-rays of the left hip were reviewed. It show a noncemented total hip arthroplasty. She got extensive polyethylene wear. Not a lot of osteolysis. No signs of loosening of the acetabulum. The acetabulum itself looks just a little bit unusual. ASSESSMENT: A 71-year-old female now about 3 months out from a right knee replacement and 16 years out from a left total hip replacement with extensive polyethylene wear. I do not think she is having a lot of pain from this, but my concern is that she is going to have further wear and start causing metal on metal issues. PLAN: We are going to take her to the operating room and revise her left hip. We are going to plan on doing a polyethylene exchange and femoral head exchange alone. I think this is all she will need. We will be prepared to revise the entire hip if needed including the acetabular component and the femoral component. I think it is extremely unlikely. The risks and benefits of this procedure were explained to the patient including but not limited to DVT, PE, , infection, neurological injury, vascular injury, bleeding problems, pain, limited range of motion, stiffness, failure to relief her symptoms, dislocation, instability afterwards, nerve palsy, etc. The patient understands and desires to proceed. Informed consent was obtained. I did talk to her about the risk of lengthen her leg as we likely will. I also talked about the increased risk of dislocation after a similar surgery. She understands and would like to proceed. As far as discharge plans, she is planning to be discharged home using the [facility] home health program. RONNIE
[~2016-10-26] VITALS: Ht 162.6 cm; Wt 92.7 kg
[2016-10-26] VITALS (15 sets, daily range): BP systolic 93–139; BP diastolic 51–88; PULSE 66–77; TEMP 36.4–37.3; O2SAT 94–100; Ht 162.6 cm; Wt 92.7 kg
[~2016-10-26 06:28] MED LIST changes: -ACET-24 PO; +ACETAMINOPHEN 500 MG TAB PO SCH; -ASPEC325 PO; +CEFAZOLIN 1000MG/55 ML D5W 55 ML IV SCH; +FAMOTIDINE 20 MG TAB PO SCH; +LACTATED RINGER'S 1000ML 1,000 ML IV SCH; +LACTATED RINGER'S 1000ML IV SCH; +METOCLOPRAMIDE HCL 10 MG TAB PO SCH; +SCOPOLAMINE 1.5 MG TDSY TD SCH; +TRANEXAMIC ACID INJ 1,000 MG in SODIUM CHLORIDE 0.9% 100ML 100 ML IV SCH; -ULT50X PO
[2016-10-26] MEDS ORDERED: BUPIVACAINE 0.5 % 5 MG/1 ML PF 10ML VIAL ONE (06:44)
[2016-10-26] MEDS ORDERED: MIDAZOLAM HCL 1 MG/ML 2ML VIAL ONE (07:24)
[2016-10-26] MEDS ORDERED: MoRPHine SULFATE PF 1 MG/ML 10 ML AMP/VIAL ONE (07:24)
[2016-10-26] MEDS ORDERED: CEFAZOLIN IV 2,000 MG/60 ML D5W IV ONE (07:44)
[2016-10-26] MEDS ORDERED: BUPIVACAINE/EPINEPHRINE 0.5% MPF 1:200,000 10 ML VIAL ONE (08:33)
[2016-10-26] MEDS ORDERED: BACITRACIN 50000 UNIT VIAL ONE (08:33)
[2016-10-26] MEDS ORDERED: NALOXONE HCL INJ 0.08 MG in SYRINGE 1.8 ML IV PRN (08:41)
[2016-10-26] MEDS ORDERED: NALOXONE HCL INJ 1 MG in SODIUM CHLORIDE 0.9% 1000ML 1,000 ML IV PRN ×4 (08:41)
[2016-10-26] MEDS ORDERED: SODIUM CHLORIDE 0.9% 1000ML 1,000 ML IV PRN (08:41)
[2016-10-26] MEDS ORDERED: LACTATED RINGER'S 1000ML 500 ML IV PRN (08:41)
[2016-10-26] MEDS ORDERED: MoRPHine SULFATE PF 1 MG/ML 10 ML AMP/VIAL EPI PRN (08:45)
[2016-10-26] MEDS ORDERED: NALBUPHINE HCL INJ 10 MG/ML AMP IV PRN (08:45)
[2016-10-26] MEDS ORDERED: DiphenhydrAMINE HCL 50 MG/ML VIAL IV PRN (08:45)
[2016-10-26] MEDS ORDERED: MEPERIDINE HCL 25 MG/ML CARP IV PRN ×2 (08:45)
[2016-10-26] MEDS ORDERED: ATROPINE SULFATE 0.1 MG/ML 5ML SYR IV PRN (08:45)
[2016-10-26] MEDS ORDERED: PROMETHAZINE HCL INJ 6.25 MG in SODIUM CHLORIDE 0.9% 50ML 50 ML IV PRN (08:45)
[2016-10-26] MEDS ORDERED: ONDANSETRON INJ 2 MG/ML 2 ML VIAL IV PRN ×2 (08:45)
[2016-10-26] MEDS ORDERED: EpHEDrine SULFATE INJ 50 MG/ML AMP IV PRN ×2 (08:45)
[2016-10-26] MEDS ORDERED: NALOXONE HCL 0.4 MG/1 ML VIAL/CARP IV PRN (08:45)
[2016-10-26] MEDS ORDERED: KETOROLAC TROMETHAMINE 15 MG/ML VIAL IV. PRN ×2 (08:45)
[2016-10-26] MEDS ORDERED: NO NARCOTICS OR SEDATIVES SCH (08:45)
[2016-10-26] MEDS ORDERED: PHENYLEPHRINE 100MCG/ML 5ML SYR IV PRN (08:45)
[2016-10-26] MEDS ORDERED: PHENYLEPHRINE 100MCG/ML 5ML SYR ONE (09:59)
--- NOTE | 2016-10-26 10:27 | [facility] Post Operative Brief Note ---
Immediate Operative Summary Operative Date Oct 26, 2016. Pre-Operative Diagnosis Left THR with extreme Polyethylene Wear Post-Operative Diagnosis Same with extensive synovitis Procedure(s) Performed Left Total Hip Revision--Femoral head and polyethylene exchange Surgeon Dr Dwight Richardson [employer] Architect Surgeon(s) Parviz Garcia PA-C Estimated Blood Loss 200cc Findings Poly wear + Synovitis. Components well fixed. Fluids (cc crystalloids) 1100 cc Specimens As Per Surgeon A. Removed Hardware left hip (Femoral head and liner) Drains None Anesthesia Spinal Complication(s) None Disposition Recovery Room / PACU
[2016-10-26] MEDS ORDERED: SILVER SULFADIAZINE 1% CR 50 GM JAR EXT PRN (10:30)
[2016-10-26] MEDS ORDERED: ALUMINUM/MAGNESIUM/SIMETH (MAALOX MAX) 30 ML UDC PO PRN (10:30)
[2016-10-26] MEDS ORDERED: BISACODYL 10 MG SUPP PR PRN (10:30)
[2016-10-26] MEDS ORDERED: MAGNESIUM HYDROXIDE SUSP 30 ML UDC PO PRN (10:30)
--- NOTE | 2016-10-26 10:55 | DIAGNOSTIC IMAGING REPORT ---
AP PELVIS, CROSSTABLE LATERAL LEFT HIP History: Left total hip arthroplasty. Degenerative arthritis. Postop. FINDINGS: The patient is status post a left total hip arthroplasty. The hardware is intact. No fracture or dislocation. Skin deedee are in place. IMPRESSION: Left total hip arthroplasty. No evidence for hardware complication. Electronically signed by: Phillip Ramirez M.D. 10/26/2016 10:54 AM Dictated Date/Time: 10/26/2016 10:53 AM
--- NOTE | 2016-10-26 12:03 | Anesthesiology Progress Note ---
Anesthesia Post Op Note Date & Time Oct 26, 2016 at 12:02 Vital Signs Pain Intensity: 0 Vital Signs Past 12 Hours Date Time Temp Pulse Resp B/P (MAP) Pulse Ox O2 Delivery O2 Flow Rate FiO2 10/26/16 11:26 115/76 10/26/16 11:25 67 15 100 10/26/16 11:25 68 15 10/26/16 11:21 96/74 10/26/16 11:16 127/69 10/26/16 11:15 68 11 10/26/16 11:15 67 11 100 10/26/16 11:11 116/58 10/26/16 11:10 70 13 10/26/16 11:10 70 13 99 10/26/16 11:06 36.3 71 16 115/56 (84) 98 Nasal Cannula 2 10/26/16 11:06 115/56 10/26/16 11:05 70 12 100 10/26/16 11:05 70 12 10/26/16 11:01 106/59 10/26/16 11:00 71 14 10/26/16 11:00 71 14 97 10/26/16 10:56 112/58 10/26/16 10:55 72 13 10/26/16 10:55 72 13 94 10/26/16 10:51 126/56 10/26/16 10:50 75 16 10/26/16 10:50 76 16 97 10/26/16 10:49 75 13 98 10/26/16 10:49 75 18 98 10/26/16 10:46 126/56 10/26/16 10:44 77 16 98 10/26/16 10:44 77 16 10/26/16 10:42 96/38 10/26/16 10:39 80 15 98 10/26/16 10:39 80 15 10/26/16 10:36 118/62 10/26/16 10:34 83 18 99 10/26/16 10:34 84 18 10/26/16 10:31 105/53 10/26/16 10:29 87 22 10/26/16 10:29 87 22 99 10/26/16 10:26 92/51 10/26/16 10:25 88/58 10/26/16 10:24 88 19 10/26/16 10:24 87 19 97 10/26/16 10:24 36.3 88 12 88/58 94 Mask 10 10/26/16 06:55 36.8 76 20 139/88 98 Room Air Notes Mental Status: alert / awake / arousable, participated in evaluation Pt Amnestic to Procedure: Yes Nausea / Vomiting: adequately controlled Pain: adequately controlled Airway Patency, RR, SpO2: stable & adequate BP & HR: stable & adequate Hydration State: stable & adequate Anesthetic Complications: no major complications apparent
--- NOTE | 2016-10-26 12:06 | OPERATIVE REPORT ---
DATE OF OPERATION: 10/26/2016 PREOPERATIVE DIAGNOSIS: Status post left total hip replacement with extreme polyethylene wear. POSTOPERATIVE DIAGNOSIS: Same. PROCEDURE PERFORMED: Left revision total hip arthroplasty with a femoral head exchange and polyethylene exchange. SURGEON: Dr. Dwight Richardson. APPEALS BOARD REFEREE: Laron Garcia PA-C. COMPLICATIONS: None. ESTIMATED BLOOD LOSS: 200 mL. FLUID REPLACEMENT: 1100 mL crystalloid fluid replacement. ANESTHESIA: Spinal. SPECIMENS: Left hip polyethylene as well as femoral head sent for gross pathology. OPERATIVE INDICATIONS: The patient is a 71-year-old white female who is now about 16 years out from a left uncemented total hip arthroplasty. She has done pretty well. She recently had her right knee replaced. She has developed some pain and discomfort in her left hip over time. X-rays showed significant polyethylene wear. The patient is not having extreme symptoms, but she was near catastrophic failure of the polyethylene and elected to proceed with revision. The components looked to be well fixed. She had no history of infection or infectious problems. OPERATIVE FINDINGS: Operative findings revealed extensive synovitis and a large hip joint effusion. There was extreme polyethylene wear with about a millimeter or 2 of polyethylene remaining before wear through to the superior medial dome. The acetabular component and femoral components were well fixed. There was some corrosion of the taper which was cleaned off. OPERATIVE IMPLANTS: Operative implants consisted of: 1. DePuy Mandaree highly cross-linked polyethylene liner with a 48 mm outer diameter and 28 mm inner diameter with a 10 degree lip placed superior/posterior. 2. A +5/28 mm metal articular ball. OPERATIVE PROCEDURE: The patient was taken to the operating room, identified and placed on the operating table in supine position. All contact areas were appropriately padded. IV antibiotics were provided by anesthesia team. A spinal anesthetic had been implemented in the holding area. Gonzales catheter was placed in sterile fashion. The patient was then placed in the right lateral decubitus position. An axillary roll was placed. Stlberg hip positioner was used for positioning. The left hip and leg were then prepped and draped in usual sterile fashion. A posterolateral approach to the left hip was then performed through a curvilinear incision. I could not use the previous incision as it was extremely posterior and I knew I was going to have to get the hip anterior to replace the liner. Sharp dissection was carried down through the subcutaneous tissues down to the level of the IT band and gluteal fascia. The IT band and gluteal fascia were incised longitudinally in line with skin incision. I dissect the IT band off the vastus lateralis and the hip abductors. I then skeletonized proximal posterior femur, leaving a large capsular flap for repair of the posterior capsule. Great care was taken throughout the procedure to protect the sciatic nerve at all times. There was a large hip joint effusion and the capsule was fairly stretched out. Upon entering the capsule there was quite a bit of debris. I released the posterior capsule. The hip was internally rotated and dislocated. We removed the femoral head without incident. There was some trunionosis of the taper and we spent quite a bit of time cleaning that. The femur was retracted anteriorly. I did check the femur and it was well fixed. Attention was then drawn to the acetabulum. The synovitis around the acetabulum was debrided with the use of a rongeur. I defined the edges of the acetabulum. I then used the cup remover to remove the polyethylene liner. The locking ring was intact. We then trialed the hip. The hip was stable with the standard components of 0 head and a standard liner, but I really wanted to maximize her stability due to this revision situation and the known increased risk of dislocation. Therefore, we elected to place a 10 degree lip, posterior and superior which was the area where it was most unstable. I impacted the highly cross-linked Mandaree liner. I selected a +5/28 mm metal articular head as this leg was just slightly short preoperatively and I wanted to maximize her stability and soft tissue tension. A +5/28 mm metal head was impacted. We then reduced the hip. It was fully stable in full extension and external rotation, flexion to 90 degrees and internal rotation to 50 degrees. Attention was then drawn toward closing. I irrigated extensively. I injected locally with 60 mL of 0.5% Marcaine with epinephrine. The posterior capsule was repaired through drill holes in the posterior trochanter with #2 Ti-Cron suture. The IT band and gluteal fascia were then closed with #1 PDS suture in running fashion. The subcutaneous tissues were then closed in 2 layers with a deep layer #1 Vicryl suture and the subcutaneous tissue with 2-0 Dexon suture in a buried interrupted fashion. Skin was closed with skin deedee. Leg was then cleaned and dried and a sterile dressing of Xeroform, 4 x 4's, sterile ABD pad and foam tape was applied. The patient then transferred to the recovery room in stable condition. The patient tolerated the procedure well with no complications. All needle and sponge counts were correct at the end of the operation. I attest to the content of the Intraoperative Record and any orders documented therein. Any exceptions are noted below. MTDD
[2016-10-26] MEDS: D5W AND 1/2NSS + 20MEQ KCL 1,000 ML IV SCH ×2 (12:49→20:50)
[2016-10-26] MEDS: KETOROLAC TROMETHAMINE 15 MG/ML VIAL IV. SCH ×3 (12:56→23:53)
[2016-10-26] MEDS: FERROUS GLUCONATE 324 MG TAB PO SCH ×2 (13:35→18:46)
[2016-10-26] MEDS: ACETAMINOPHEN 500 MG TAB PO SCH ×2 (13:35→20:51)
[2016-10-26] MEDS ORDERED: NURSING VERBAL MED ORDER ONE (14:45)
[2016-10-26] MEDS: CHECK SCOPOLAMINE PATCH PLACEMENT SCH ×2 (15:38→23:53)
[2016-10-26] MEDS: CEFAZOLIN IV 2,000 MG in DEXTROSE 5% 50ML 50 ML IV SCH ×2 (15:44→23:55)
[2016-10-26] MEDS ORDERED: TRANEXAMIC ACID INJ 1,000 MG in SODIUM CHLORIDE 0.9% 100ML 100 ML IV ONE (17:00)
[2016-10-26] MEDS: MICONAZOLE NITRATE POWDER 43 GM EXT PRN (17:43)
--- NOTE | 2016-10-26 19:59 | PROGRESS NOTE ---
DATE: 10/26/2016 SUBJECTIVE: A 71-year-old white female postop from a left revision total hip replacement/polyethylene exchange and femoral head exchange for severe polyethylene wear. She is doing well. Not much pain. No chest pain or shortness of breath. Not feeling dizzy or lightheaded. OBJECTIVE: VITAL SIGNS: Temperature 36.4. Vital signs stable. GENERAL: Reveals a healthy pleasant elderly female. She is lying in bed and talking to her and looks pretty comfortable. LUNGS: Clear to auscultation. HEART: Regular rate and rhythm. ABDOMEN: Soft, nontender, nondistended. EXTREMITIES: Grossly neurovascularly intact except as follows: Examination of the left leg reveals leg lengths to be equal. Hip is located. She can dorsiflex and plantarflex her foot appropriately. Dressing is clean, dry and intact. Thigh is soft and supple. X-RAYS: X-rays of the left hip from recovery room reviewed. It shows a left uncemented total hip replacement to be in good position. The hip is located. No signs of complications. ASSESSMENT: A 71-year-old white female postop from a left femoral head and polyethylene liner exchange for severe polyethylene wear, doing well. Hip is located. She is neurologically intact. PLAN: 1. DVT prophylaxis including thigh-high TEDs, SCDs, and aspirin twice a day. 2. PT/OT. Weightbearing as tolerated. Left total hip protocol. 3. Pain control, doing well with current pain regimen. 4. IV antibiotics x24 hours. 5. Disposition: Plan to discharge her to home with home health once adequately recovered.
[2016-10-26] MEDS: FAMOTIDINE 20 MG TAB PO SCH (20:50)
[2016-10-26] MEDS: DOCUSATE SODIUM 100 MG CAP PO SCH (20:51)
[2016-10-26] MEDS: ASPIRIN 325 MG ECTAB PO SCH (20:51)
[2016-10-26] MEDS: SENNA 8.6 MG TAB PO SCH (20:52)
[2016-10-26] MEDS: AMITRIPTYLINE HCL 50 MG TAB PO SCH (20:53)
[2016-10-26] MEDS: SIMVASTATIN 20 MG TAB PO SCH (20:53)
[2016-10-27] VITALS (9 sets, daily range): BP systolic 103–118; BP diastolic 56–71; PULSE 62–76; TEMP 36.4–37.2; O2SAT 93–99
[2016-10-27] MEDS ORDERED: DC INTRASPINAL MORPHINE SCH (01:00)
[2016-10-27] MEDS ORDERED: ONDANSETRON INJ 2 MG/ML 2 ML VIAL IV PRN (01:01)
[2016-10-27] MEDS ORDERED: METOCLOPRAMIDE HCL INJ 5 MG/ML 2 ML VIAL IV PRN (01:01)
[2016-10-27] MEDS ORDERED: HYDROmorphone INJ 0.5 MG/0.5 ML SYR IV PRN (01:01)
[2016-10-27] MEDS ORDERED: ZOLPIDEM TARTRATE 5 MG TAB PO PRN (01:01)
[2016-10-27] MEDS: D5W AND 1/2NSS + 20MEQ KCL 1,000 ML IV SCH (05:14)
[2016-10-27] MEDS: ACETAMINOPHEN 500 MG TAB PO SCH ×3 (05:50→20:26)
[2016-10-27] MEDS: KETOROLAC TROMETHAMINE 15 MG/ML VIAL IV. SCH ×4 (05:50→23:22)
[2016-10-27 06:15] LABS: BASO % 0.4 %; BASO ABS # 0.04 K/uL (0-0.2); COMPLETE YES; EOS % 3.6 %; HEMATOCRIT 37.5 % (37-47); IG% 0.2 %; LYMPH % 13.8 %; MEAN CELL VOLUME 90.8 fL (80-100); MEAN CORPUSCULAR HEMOGLOBIN 30.5 pg (25-34); MEAN CORPUSCULAR HGB CONC 33.6 g/dl (32-36); MEAN PLATELET VOLUME 8.6 fL (7.4-10.4); MONO % 8.5 %; NEUT % 73.5 %; PLATELET COUNT 190 K/uL (130-400); RED BLOOD COUNT 4.13 M/uL (4.2-5.4); WHITE BLOOD COUNT 9.41 K/uL (4.8-10.8)
[2016-10-27 06:50] LABS: BUN/CREATININE RATIO 12.7 (10-20); CALCIUM 8.5 mg/dl (8.5-10.1); CREATININE 0.96 mg/dl (0.60-1.20); POTASSIUM 4.3 mmol/L (3.5-5.1)
--- NOTE | 2016-10-27 07:42 | PROGRESS NOTE ---
DATE: 10/27/2016 SUBJECTIVE: A 71-year-old female postop day #1 from a revision left total hip replacement for poly wear. She is doing well. Pain is controlled. Denies any chest pain or shortness of breath. Not feeling dizzy or lightheaded. OBJECTIVE: VITAL SIGNS: Temperature 36.4. Vital signs stable. PHYSICAL EXAMINATION: GENERAL: Reveals a healthy, pleasant, middle-aged female. She is lying in bed, looks pretty comfortable. EXTREMITIES: Examination of left hip reveals leg lengths to be equal. Hip is located. She can dorsiflex and plantarflex her foot appropriately. She is neurologically intact. LABORATORY DATA: Hemoglobin 12.6. Hematocrit 37.5. Electrolytes are stable. ASSESSMENT: A 71-year-old white female postoperative day #1 from a left revision total hip replacement, doing pretty well. Pain is controlled. Hip is located. She is neurologically intact. PLAN: 1. DVT prophylaxis including thigh-high TEDs, SCDs, and aspirin twice a day. 2. PT/OT. Weightbear as tolerated. Left total hip protocol. 3. Pain control, doing well with current pain regimen. 4. Disposition: Plan to discharge to home with some home health once adequately recovered.
--- NOTE | 2016-10-27 07:51 | Anesthesiology Progress Note ---
Anesthesia Post Op Note Date & Time Oct 27, 2016 at 07:51 Vital Signs Pain Intensity: 2 Vital Signs Past 12 Hours Date Time Temp Pulse Resp B/P (MAP) Pulse Ox O2 Delivery O2 Flow Rate FiO2 10/27/16 07:41 96 Room Air 10/27/16 07:39 37.2 72 12 112/58 (76) 96 Room Air 10/27/16 03:28 36.4 65 16 111/71 (84) 99 Nasal Cannula 2.0 10/27/16 01:02 62 16 98 Nasal Cannula 2.0 10/27/16 00:58 16 98 10/27/16 00:37 62 16 98 Nasal Cannula 2.0 10/26/16 23:58 16 98 10/26/16 23:58 Nasal Cannula 2.0 10/26/16 23:35 36.4 67 16 120/72 (88) 98 Nasal Cannula 2.0 10/26/16 21:35 16 98 10/26/16 20:35 18 99 Notes Mental Status: alert / awake / arousable Pt Amnestic to Procedure: Yes Nausea / Vomiting: adequately controlled Pain: adequately controlled Airway Patency, RR, SpO2: stable & adequate BP & HR: stable & adequate Hydration State: stable & adequate Neuraxial Anesthesia: sensory block resolved has not voided
[2016-10-27] MEDS: FERROUS GLUCONATE 324 MG TAB PO SCH ×3 (08:22→18:12)
[2016-10-27] MEDS: CHECK SCOPOLAMINE PATCH PLACEMENT SCH ×3 (08:25→23:22)
[2016-10-27] MEDS: MICONAZOLE NITRATE POWDER 43 GM EXT PRN ×2 (08:27→20:29)
[2016-10-27] MEDS ORDERED: MULTIVITAMIN TAB PO SCH (09:00)
[2016-10-27] MEDS: PANTOprazole SOD 40 MG TAB PO SCH (09:18)
[2016-10-27] MEDS: LISINOPRIL/HCTZ 20/12.5MG TAB PO SCH (09:18)
[2016-10-27] MEDS: MULTIVITAMIN TAB PO SCH (09:18)
[2016-10-27] MEDS: CALCIUM 600MG + VIT D 400 IU TAB PO SCH (09:18)
[2016-10-27] MEDS: ASPIRIN 325 MG ECTAB PO SCH ×2 (09:18→20:25)
[2016-10-27] MEDS: DOCUSATE SODIUM 100 MG CAP PO SCH ×2 (09:18→20:25)
[2016-10-27] MEDS: TRAMADOL HCL 50 MG TAB PO PRN ×3 (09:32→17:17)
[2016-10-27] MEDS: SENNA 8.6 MG TAB PO SCH (20:25)
[2016-10-27] MEDS: AMITRIPTYLINE HCL 50 MG TAB PO SCH (20:25)
[2016-10-27] MEDS: FAMOTIDINE 20 MG TAB PO SCH (20:25)
[2016-10-27] MEDS: SIMVASTATIN 20 MG TAB PO SCH (20:25)
[2016-10-27] MEDS ORDERED: ULT50X PO (21:41)
[2016-10-27] MEDS ORDERED: ACET-24 PO (21:41)
[2016-10-27] MEDS ORDERED: ASPEC325 PO (21:41)
--- NOTE | 2016-10-27 21:43 | Discharge Instructions ---
Discharge Instructions Date of Service Oct 27, 2016. Admission Reason for Admission: Left Hip Prosthetic Loosening Of Total Hip Replace Discharge Discharge Diagnosis / Problem: Left Hip Replacement Revision Discharge Goals Goal(s): Decrease discomfort, Improve function, Increase independence, Improve disease control, Therapeutic intervention Activity Recommendations Activity Limitations: per Instructions/Follow-up section (Total Hip Precautions ) . Instructions / Follow-Up Instructions / Follow-Up ACTIVITY RECOMMENDATIONS: Physical Therapy: * Aggressive physical therapy is not usually needed. You will learn to take care of yourself safely and walk. * Follow the "Hip Precautions Instructions." * In some cases, the social media strategist at the hospital will arrange to have a therapist come to your house for the first couple of weeks to help you learn these skills. * You need to practice on your own or with the help of a family member as needed. * When you learn these skills, most of the therapy can be done on your own. Home Exercise: * You were shown a series of exercises in the hospital. Do these exercises three to four times each day including the exercises you were shown in physical therapy. Walking: * Get up and walk several times each day. For the first four weeks, try not to stand or walk for more than one hour at a time. If you do stand or walk for more than one hour, you will not hurt anything, but your leg will likely swell. * As you feel comfortable, you may change from the walker or crutches to a cane and then to independent walking. MEDICATIONS: New Medicine: * You will likely be taking one or more of these medicines: 1. Tramadol - Take, as directed, when you need it, every four to six hours to control your pain. 2. Aspirin - Thins your blood to lessen the chance of forming a blood clot. * The most common side effects of pain medicine and iron are nausea and constipation. If nausea or constipation is too much of a problem or if you have any questions about your new medicines or doses, call [facility] at [phone]. We will try to help you manage these issues. VERY IMPORTANT TO READ AND REVIEW" Pain: * The immediate post-operative period after hip replacement surgery is often quite painful. * You are given a prescription for pain medicine. You should take it, as directed, when you need it, especially before physical therapy and before going to bed. Pain that interferes with sleep is very common and can last several months. * You will likely need pain medicine for the first two to four weeks. It will not stop all of the pain. The pain will lessen and as you feel better, you may change to milder pain medicine such as Tylenol. * The most common side effects of pain medicine are nausea and constipation, so don't take more than you need. SPECIAL CARE INSTRUCTIONS: TEDs/Elastic Stockings: * The white elastic stockings help limit swelling and prevent blood clots from forming in your legs. The more you wear them, the more they work. * Wear them for six weeks. Prevention of Infection: * Take antibiotics one hour before any dental cleaning, dental work, urological procedure, gastrointestinal procedure or any invasive surgery in order to prevent your new joint from getting infected. * You may get the antibiotics from the doctor performing the procedure or you may call our office at before and we will call in a prescription to the pharmacy of your choice. Things to Watch For: * Drainage from the incision site that occurs more than one week after your surgery. * Severely increased leg pain or swelling. * Increased redness at the incision site. * Fever above 102 degrees Fahrenheit. * Unusual chest pain or shortness of breath. * Unusual pain or burning with urination. Call [facility] at with any of the above problems or if you have any questions about your medicines or recovery. FOLLOW UP VISIT: Make an appointment to see your doctor for approximately two weeks after surgery for a progress check and staple removal by calling the office at . Current Hospital Diet Patient's current hospital diet: Regular Diet Discharge Diet Recommended Diet: Regular Diet Procedures Procedures Performed: Left Total Hip Revision--Femoral head and polyethylene exchange Pending Studies Studies pending at discharge: no Medical Emergencies . Who to Call and When: Medical Emergencies: If at any time you feel your situation is an emergency, please call [phone] immediately. . Non-Emergent Contact Non-Emergency issues call your: Surgeon . "Provider Documentation" section prepared by Dwight Richardson. . VTE Core Measure Inpt VTE Proph given/why not?: Other Anticoagulation, T.E.D. Stockings, SCD's
[2016-10-28] MEDS: KETOROLAC TROMETHAMINE 15 MG/ML VIAL IV. SCH (05:50)
[2016-10-28] MEDS: ACETAMINOPHEN 500 MG TAB PO SCH (05:51)
--- NOTE | 2016-10-28 07:41 | PROGRESS NOTE ---
DATE: 10/28/2016 SUBJECTIVE: A 71-year-old female status post a revision total hip replacement with femoral head and polyethylene exchange. She is doing well. Some soreness. No chest pain or shortness of breath. Not feeling dizzy or lightheaded. OBJECTIVE: VITAL SIGNS: Temperature 36.4. Vital signs stable. GENERAL: Reveals a healthy pleasant, elderly female. She is lying in bed, looks pretty comfortable. EXTREMITIES: Examination of the left hip reveals incision to be clean, dry and intact. No significant drainage. Hip is located. Leg lengths are equal. She is neurologically intact. ASSESSMENT: A 71-year-old white female postop day 2 from left revision hip replacement with a polyethylene exchange and femoral head exchange for poly wear. She is doing well. Pain is reasonably controlled. Hip is located. She is neurologically intact. PLAN: 1. DVT prophylaxis including thigh-high TEDs, SCDs, and aspirin twice a day. 2. PT/OT. Weightbearing as tolerated. Left total hip protocol. 3. Pain control, doing well with current pain regimen. 4. Disposition: Plan to discharge to home with some home health later today.
[2016-10-28] MEDS: CHECK SCOPOLAMINE PATCH PLACEMENT SCH (07:43)
[2016-10-28 07:46] VITALS: BP 114/52; PULSE 70; TEMP 36.4; O2SAT 97
[2016-10-28 07:49] VITALS: O2SAT 97
[2016-10-28] MEDS: TRAMADOL HCL 50 MG TAB PO PRN (07:57)
[2016-10-28] MEDS: PANTOprazole SOD 40 MG TAB PO SCH (08:33)
[2016-10-28] MEDS: FERROUS GLUCONATE 324 MG TAB PO SCH ×2 (08:33→12:30)
[2016-10-28] MEDS: ASPIRIN 325 MG ECTAB PO SCH (08:33)
[2016-10-28] MEDS: DOCUSATE SODIUM 100 MG CAP PO SCH (08:33)
[2016-10-28] MEDS: MULTIVITAMIN TAB PO SCH (08:33)
[2016-10-28] MEDS: LISINOPRIL/HCTZ 20/12.5MG TAB PO SCH (08:33)
[2016-10-28] MEDS: CALCIUM 600MG + VIT D 400 IU TAB PO SCH (08:33)
[2016-10-28 11:14] VITALS: BP 114/52; PULSE 70; TEMP 36.4; O2SAT 97
--- NOTE | 2016-11-02 15:50 | DISCHARGE SUMMARY ---
ADMITTING PHYSICIAN AND SURGEON: Dr. Richardson. 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 PROCEDURE PERFORMED: Left revision total hip arthroplasty with femoral head exchange and polyethylene exchange. SECONDARY DIAGNOSES: Hypertension, elevated cholesterol, obesity, gastroesophageal reflux disease, arthritis, fatty liver disease. CONSULTS: None obtained. HISTORY AND PHYSICAL EXAMINATION: Well documented in patient's chart. HOSPITAL COURSE: The patient was admitted on 10/26/2016, underwent revision arthroplasty as above. She tolerated the procedure well. There were no complications. She was transferred to the PACU postoperatively and later to the orthopedic floor for further care. She was given Ancef for antibiotic prophylaxis, ANA LUISA stockings, SCDs and aspirin for DVT prophylaxis. Hemoglobin, hematocrit and vital signs were monitored during her hospital stay and remained stable. She did not require any blood transfusions. There were no complications. By postoperative day #2, she was tolerating a general diet, pain was controlled with oral pain medicine. She was participating in physical therapy and had no signs or symptoms of deep vein thrombosis. On postop day #2, she was discharged home and set up with home health services. She was given printed discharge instructions including new prescriptions for extra strength Tylenol, aspirin 325 mg b.i.d., tramadol. Continue her home medicines. Continue physical therapy, weightbearing as tolerated. ANA LUISA stockings, total hip precautions. Follow up in 10-12 days or sooner if there are any problems or concerns.
== END 2016-10-28 13:32 | disposition home health service (06) | DRG 468 ==
LOC: C.ACU 06:28 → C.3E 06:40 → ENRESERV 11:09
PROVIDERS: ADMIT Orthopaedic Surgery Sports Medicine; ATTEND Orthopaedic Surgery Sports Medicine
PROC: 0SPB09Z Removal of Liner from Left Hip Joint, Open Approach (ICD-10-PCS; principal; 2016-10-26 08:55)
PROC: 0SRS0JA Replacement of Left Hip Joint, Femoral Surface with Synthetic Substitute, Uncemented, Open Approach (ICD-10-PCS; principal; 2016-10-26 08:55)
PROC: 0SPS0JZ Removal of Synthetic Substitute from Left Hip Joint, Femoral Surface, Open Approach (ICD-10-PCS; principal; 2016-10-26 08:55)
PROC: 0SUE09Z Supplement Left Hip Joint, Acetabular Surface with Liner, Open Approach (ICD-10-PCS; principal; 2016-10-26 08:55)
DX: T84.061A Wear of articular bearing surface of internal prosthetic left hip joint, initial encounter (principal); Y83.1 Surgical operation with implant of artificial internal device as the cause of abnormal reaction of the patient, or of later complication, without mention of misadventure at the time of the procedure; I10 Essential (primary) hypertension; E78.00 Pure hypercholesterolemia, unspecified; E66.9 Obesity, unspecified; K21.9 Gastro-esophageal reflux disease without esophagitis; M19.90 Unspecified osteoarthritis, unspecified site; Z68.35 Body mass index [BMI] 35.0-35.9, adult; K76.0 Fatty (change of) liver, not elsewhere classified; M65.9 Synovitis and tenosynovitis, unspecified; Z96.651 Presence of right artificial knee joint; Z88.6 Allergy status to analgesic agent; Z79.899 Other long term (current) drug therapy; Z79.82 Long term (current) use of aspirin; Z90.49 Acquired absence of other specified parts of digestive tract; Z98.51 Tubal ligation status

== ENCOUNTER 2017-04-08 05:03 | Inpatient (IN) | payer OTHER ==
[2017-03-10 10:59] VITALS: Ht 162.6 cm; Wt 87.5 kg
--- NOTE | 2017-03-10 11:34 | PAT Medication Instructions ---
Service Date Mar 10, 2017. Current Home Medication List Amitriptyline Hcl (Elavil), 50 MG PO HS Amoxicillin (Amoxil), 4 CAP PO before dental visit Calcium/Vitamin D (Os-Eric 500 Plus D), 1 TAB PO QAM PRN for prn Famotidine (Pepcid), 20 MG PO HS Fish Oil (Wasco-3), 1 CAP PO QAM Lisinopril/Hctz (Zestoretic 20MG/12.5MG), 1 TAB PO QPM Metoprolol Succ (Toprol Xl) (Toprol-Xl), 50 MG PO QAM Multivitamin (Multivitamin), 1 TAB PO QAM Naproxen (Naproxen Ec), 1 TAB PO BID Simvastatin (Simvastatin), 1 TAB PO HS Medication Instructions For Your Scheduled Surgery - Hold the following medications 2 weeks prior to surgery: Fish Oil (Wasco-3), 1 CAP PO QAM - Hold the following medications 10 days prior to surgery per surgeon's instructions: Naproxen (Naproxen Ec), 1 TAB PO BID - Hold the following medications the morning of surgery: Multivitamin (Multivitamin), 1 TAB PO QAM Calcium/Vitamin D (Os-Eric 500 Plus D), 1 TAB PO QAM PRN for prn - Take the following medications the morning of surgery with a sip of water OTHERWISE NOTHING TO EAT OR DRINK AFTER MIDNIGHT: Metoprolol Succ (Toprol Xl) (Toprol-Xl), 50 MG PO QAM - Take the following medications as scheduled the night before surgery: Famotidine (Pepcid), 20 MG PO HS Simvastatin (Simvastatin), 1 TAB PO HS Amitriptyline Hcl (Elavil), 50 MG PO HS - Do not take the following medications the night before surgery: Lisinopril/Hctz (Zestoretic 20MG/12.5MG), 1 TAB PO QPM If you have any questions please call us at [phone] or [phone] or [phone]
[2017-03-10 12:19] LABS: BASO % 0.8 %; BASO ABS # 0.06 K/uL (0-0.2); EOS % 3.3 %; EOS ABS # 0.26 K/uL (0-0.5); HEMATOCRIT 45.1 % (37-47); HEMOGLOBIN 15.7 g/dL (12.0-16.0); IG# 0.01 K/uL (0.00-0.02); LYMPH % 17.1 %; LYMPH ABS # 1.36 K/uL (1.2-3.4); MEAN CELL VOLUME 87.7 fL (80-100); MEAN CORPUSCULAR HEMOGLOBIN 30.5 pg (25-34); MEAN CORPUSCULAR HGB CONC 34.8 g/dl (32-36); MEAN PLATELET VOLUME 9.3 fL (7.4-10.4); MONO % 7.9 %; MONO ABS # 0.63 K/uL (0.11-0.59); NEUT % 70.8 %; NEUT ABS # 5.65 K/uL (1.4-6.5); PLATELET COUNT 241 K/uL (130-400); RED CELL DISTRIBUTION WIDTH CV 12.8 % (11.5-14.5); WHITE BLOOD COUNT 7.97 K/uL (4.8-10.8)
[2017-03-10 12:27] LABS: PTT PATIENT 25.3 SECONDS (21.0-31.0)
[2017-03-10 12:31] LABS: BLOOD UREA NITROGEN 15 mg/dl (7-18); CALCIUM 10.1 mg/dl (8.5-10.1); CARBON DIOXIDE 31 mmol/L (21-32); CREATININE 0.95 mg/dl (0.60-1.20); GLUCOSE 103 mg/dl (70-99); POTASSIUM 4.6 mmol/L (3.5-5.1); SODIUM 138 mmol/L (136-145)
--- NOTE | 2017-04-01 08:04 | HISTORY & PHYSICAL EXAMINATION ---
DATE OF ADMISSION: 04/08/2017 CHIEF COMPLAINT: Persistent left knee pain and discomfort. HISTORY OF PRESENT ILLNESS: The patient is a 71-year-old female who presents now for surgical treatment of her left knee. She had got a long history of orthopedic problems. She had her right knee replaced back in July of this year and has done well from that. She also had her left hip replaced many years ago and had a polyethylene exchange in October. She has recovered from that as well. She continues to be bothered by persistent left knee pain that has been bothering her for years, but gradually has gotten worse. Everything else is now fixed and she is limited by her left knee pain. She has got global pain. The more she walks, the more it hurts. It also feels unstable and gives out intermittently. She is concerned about falling. Her walking tolerance is limited. She would like to have her left knee replaced. PAST MEDICAL HISTORY: 1. Hypertension. 2. Elevated cholesterol. 3. Mild obesity with BMI of 33. 4. Gastroesophageal reflux disease. 5. Arthritis. 6. Fatty liver disease. 7. Mild sleep apnea. PAST SURGICAL HISTORY: Include: 1. Left hip replacement by Dr. Jara in 2000. 2. Left hip polyethylene exchange on 10/26/2016. 3. Right total knee replacement done on 07/23/2016. 4. Cholecystectomy. 5. Tubal ligation. ALLERGIES: EPINEPHRINE. CURRENT MEDICINES: Include: 1. Metoprolol ER 50 mg once a day. 2. Naproxen 375 twice a day. 3. Amitriptyline 80 mg at nighttime. 4. Simvastatin 20 mg a day. 5. Lisinopril/hydrochlorothiazide 20/12.5 once a day. 6. Famotidine 20 mg at bedtime. 7. Vitamin. 8. Amoxicillin for dental work. 9. Fish oil. SOCIAL HISTORY: A 71-year-old white female. She is . Her medical doctor is Dr. Nicolas. She is from [place]. FAMILY HISTORY: Noncontributory. REVIEW OF SYSTEMS: Negative for diabetes. No chest pain or shortness of breath. No history of DVT or PE. PHYSICAL EXAMINATION: GENERAL: Reveals a healthy, pleasant middle-aged female. HEENT: Benign. NECK: Supple. No lymphadenopathy. LUNGS: Clear to auscultation. HEART: Has a regular rate and rhythm. ABDOMEN: Soft, nontender, and nondistended. EXTREMITIES: Grossly neurovascularly intact except as follows: Examination of the left knee reveals that the patient walks with a slight bit of a limp. She has got a small knee effusion. She has got fairly neutral alignment to her knee. Range of motion is 5-125. There is no gross instability. No pain with hip motion. X-RAYS: X-rays of the left knee were reviewed. It shows advanced left knee DJD. She has got near complete loss of her medial joint space. She has got tricompartmental changes. A large loose body in the suprapatellar pouch. She has significant patellofemoral arthritis. ASSESSMENT: A 71-year-old white female status post a relatively recent right knee replacement as well as left hip polyethylene exchange with advanced left knee degenerative joint disease. She has failed conservative treatment and would like to have her left knee replaced. Her right knee is doing well. PLAN: We are going to take her to the operating room and do a left total knee replacement. The risks and benefits of this procedure were explained to the patient, including but not limited to DVT, PE, , infection, neurological injury, vascular injury, bleeding problems, pain, limited range of motion, stiffness, failure to relieve symptoms, incomplete relief of symptoms, need for further surgery in the future, fracture, leg length inequality, nerve palsy, dislocation, etc. The patient understands and desires to proceed. Informed consent was obtained. We did talk to her about taking her metoprolol on the morning of surgery. She will hold her naproxen 10 days preop and hold her lisinopril on the morning of surgery. She is planning to be discharged home using [facility] home health program. RONNIE
[~2017-04-08] VITALS: Ht 162.6 cm; Wt 87.5 kg
[2017-04-08] VITALS (11 sets, daily range): BP systolic 119–159; BP diastolic 68–86; PULSE 80–93; TEMP 36.3–37.1; O2SAT 93–100
[~2017-04-08 05:03] MED LIST changes: -ACETAMINOPHEN 500 MG TAB PO SCH; -CEFAZOLIN 1000MG/55 ML D5W 55 ML IV SCH; -FAMOTIDINE 20 MG TAB PO SCH; -LACTATED RINGER'S 1000ML 1,000 ML IV SCH; -LACTATED RINGER'S 1000ML IV SCH; +METO50TA7 PO; -METOCLOPRAMIDE HCL 10 MG TAB PO SCH; -SCOPOLAMINE 1.5 MG TDSY TD SCH; -TNR50 PO; -TRANEXAMIC ACID INJ 1,000 MG in SODIUM CHLORIDE 0.9% 100ML 100 ML IV SCH
[2017-04-08] MEDS ORDERED: METOCLOPRAMIDE HCL 10 MG TAB PO SCH (06:00)
[2017-04-08] MEDS ORDERED: TRANEXAMIC ACID INJ 1,000 MG in SYRINGE 0 ML IV SCH (06:00)
[2017-04-08] MEDS ORDERED: FAMOTIDINE 20 MG TAB PO SCH (06:00)
[2017-04-08] MEDS ORDERED: LACTATED RINGER'S 1000ML 1,000 ML IV SCH (06:00)
[2017-04-08] MEDS ORDERED: ACETAMINOPHEN 500 MG TAB PO SCH (06:00)
[2017-04-08] MEDS ORDERED: LACTATED RINGER'S 1000ML 500 ML IV SCH (06:00)
[2017-04-08] MEDS ORDERED: SCOPOLAMINE 1.5 MG TDSY TD SCH (06:00)
[2017-04-08] MEDS ORDERED: CEFAZOLIN 2000MG IV PUSH 10 ML IV SCH (06:00)
[2017-04-08] MEDS ORDERED: BUPIVACAINE LIPOSOME 266 MG, BUPIVACAINE/EPINEPHRINE INJ 50 ML, SODIUM CHLORIDE 0.9% PF... INFIL SCH ×3 (06:00)
[2017-04-08] MEDS ORDERED: GABAPENTIN 300 MG CAP PO SCH (06:00)
[2017-04-08] MEDS ORDERED: BUPIVACAINE 0.5 % 5 MG/1 ML PF 10ML VIAL ONE (06:19)
[2017-04-08] MEDS ORDERED: ROPIVACAINE 0.5% 5 MG/ML 30 ML VIAL ONE (06:19)
[2017-04-08] MEDS ORDERED: PROPOFOL IV EMULSION 10 MG/ML 20 ML VIAL IV ONE ×2 (06:23→08:02)
[2017-04-08] MEDS ORDERED: MIDAZOLAM HCL 1 MG/ML 2ML VIAL ONE ×2 (06:24→07:16)
[2017-04-08] MEDS ORDERED: FENTANYL CITRATE INJ 50 MCG/1 ML 2 ML VIAL ONE (06:24)
[2017-04-08] MEDS ORDERED: BUPIVACAINE/EPINEPHRINE 0.25% 1:200,000 30 ML VIAL ONE (06:32)
[2017-04-08] MEDS ORDERED: SODIUM CHLORIDE 0.9% PF 50 ML VIAL ONE (06:32)
[2017-04-08] MEDS ORDERED: BACITRACIN 50000 UNIT VIAL ONE (06:32)
[2017-04-08] MEDS ORDERED: BUPIVACAINE LIPOSOME 1/3% 266 MG/20 ML VIAL INFIL ONE (06:32)
[2017-04-08] MEDS ORDERED: CEFAZOLIN SOD 1 GM VIAL ONE (07:09)
[2017-04-08] MEDS ORDERED: ATROPINE SULFATE 0.1 MG/ML 5ML SYR IV PRN (07:30)
[2017-04-08] MEDS ORDERED: HYDROmorphone INJ 2 MG/ML SYR/VIAL IV PRN (07:30)
[2017-04-08] MEDS ORDERED: ONDANSETRON INJ 2 MG/ML 2 ML VIAL IV PRN ×2 (07:30→08:45)
[2017-04-08] MEDS ORDERED: EpHEDrine SULFATE INJ 50 MG/ML AMP IV PRN (07:30)
[2017-04-08] MEDS ORDERED: PHENYLEPHRINE 100MCG/ML 5ML SYR IV PRN (07:30)
--- NOTE | 2017-04-08 08:42 | [facility] Post Operative Brief Note ---
Immediate Operative Summary Operative Date Apr 08, 2017. Pre-Operative Diagnosis Left Knee Degenerative Joint Disease Post-Operative Diagnosis Same as preop Procedure(s) Performed Left Total Knee Arthroplasty Surgeon Dr. Richardson Bilingual Loan Processor Surgeon(s) Parviz Garcia PA-C Estimated Blood Loss 50 ML Findings Consistent with Post-Op Diagnosis Fluids (cc crystalloids) 1000 cc Specimens A. Left Knee Bone and Tissue Drains None Anesthesia Type MAC Spinal Regional Complication(s) none Disposition Accompanied Pt To Recover: no Disposition: Recovery Room / PACU
[2017-04-08] MEDS ORDERED: BISACODYL 10 MG SUPP PR PRN (08:45)
[2017-04-08] MEDS ORDERED: MAGNESIUM HYDROXIDE SUSP 30 ML UDC PO PRN (08:45)
[2017-04-08] MEDS ORDERED: ZOLPIDEM TARTRATE 5 MG TAB PO PRN (08:45)
[2017-04-08] MEDS ORDERED: CALCIUM 600MG + VIT D 400 IU TAB PO PRN (08:45)
[2017-04-08] MEDS ORDERED: SILVER SULFADIAZINE 1% CR 50 GM JAR EXT PRN (08:45)
[2017-04-08] MEDS ORDERED: METOCLOPRAMIDE HCL INJ 5 MG/ML 2 ML VIAL IV PRN (08:45)
[2017-04-08] MEDS ORDERED: HYDROmorphone INJ 0.5 MG/0.5 ML SYR IV PRN (08:45)
[2017-04-08] MEDS ORDERED: ALUMINUM/MAGNESIUM/SIMETH (MAALOX MAX) 30 ML UDC PO PRN (08:45)
[2017-04-08] MEDS ORDERED: PANTOprazole SOD 40 MG TAB PO SCH (09:00)
[2017-04-08] MEDS ORDERED: MULTIVITAMIN TAB PO SCH (09:00)
--- NOTE | 2017-04-08 09:08 | OPERATIVE REPORT ---
DATE OF OPERATION: 04/08/2017 SURGEON: Dr. Dwight Richardson. FUNDS TRANSFER CLERK: ASHWIN Arvizu PREOPERATIVE DIAGNOSIS: Left knee degenerative joint disease. POSTOPERATIVE DIAGNOSIS: Same. PROCEDURE PERFORMED: Left cemented posterior stabilized total knee arthroplasty. COMPLICATIONS: None. ESTIMATED BLOOD LOSS: 50 mL. FLUID REPLACEMENT: 1000 mL crystalloid fluid replacement. ANESTHESIA: Spinal with adductor canal block. DRAINS: None. SPECIMENS: Left knee sent for pathology. TOURNIQUET TIME: 57 minutes at 300 mmHg. OPERATIVE INDICATIONS: The patient is a 71-year-old female who has had a long history of bilateral knee pain and discomfort and multiple other joint problems. She underwent a right knee replacement back in July and then a revision of polyethylene liner for left hip in October. She has done well from this. She continued to be limited by her left knee pain and discomfort and severe arthritis, most severe in the patellofemoral compartment. She failed conservative treatment and elected to proceed with the operative treatment. OPERATIVE FINDINGS: Operative findings revealed advanced grade 4 [id number] disease in all 3 compartments, but most severe in the patellofemoral compartment. She had large osteophytes in the patellofemoral joint. She had a large knee joint effusion. She had slight flexion contracture of 10 degrees. She had extensive eburnation of the trochlea and patellar with a very thin patella. OPERATIVE IMPLANTS: Operative implants consisted of: 1. Biomet Vanguard size 62.5 left posterior stabilized femoral component. 2. Biomet size 63 tibial tray. 3. A 10-mm posterior stabilized polyethylene insert. 4. A 31 x 8 all poly patella. OPERATIVE PROCEDURE: The patient was taken to the operating room, identified and placed on the operating table in the supine position. All contact areas were appropriately padded. IV antibiotics were provided by anesthesia team. A spinal anesthetic and adductor canal block were provided in the holding area. Gonzales catheter was placed in sterile fashion. Left thigh tourniquet was then placed and left lower extremity was then prepped and draped in the usual sterile fashion. The left leg was elevated and exsanguinated with Esmarch and tourniquet was placed at 300 mmHg. An anterior approach to the left knee was then performed through a longitudinal incision centered over the patella. Sharp dissection was carried out through the subcutaneous tissues down to the level of the extensor mechanism. Medial parapatellar arthrotomy incision was made. Some subperiosteal dissection was carried out medially. The fat pad was resected from beneath the patellar tendon. The patella was everted and then, the knee was flexed. The osteophytes were taken off the distal femur. The ACL and PCL were released from the distal femur and the tibia subluxated anteriorly. The external tibial alignment jig was then placed in the anterior face of the tibia and adjusted 14 mm medially. Proximal tibial cut was made to remove about 2-3 mm of bone from the most deficient aspect of the medial tibial plateau. The tibia was then sized to a size 63. Attention was then drawn to the femur. The distal femur was entered with a sharp drill. Intramedullary canal was suctioned. A left 5-degree valgus cutting guide was placed. Distal femoral cutting block was pinned in place. Distal femoral cut was made to take an additional 3 mm of bone off the distal femur. The femur was then sized to a size 62.5. We did downsize this just slightly. The AP cutting block was pinned parallel to the epicondylar axis, which was 5 degrees of external rotation. The anterior cut, anterior chamfer, posterior cut, and posterior chamfer cuts were made. The box cutting guide was placed and adjusted slightly lateral and the box cut was made. The knee was flexed. The remnants of the medial and lateral menisci were excised. The osteophytes were taken off the posterior aspect of the femur. Trial femoral component was placed. The tibial tray was pinned in maximum external rotation and drill and stem punch were used to create defect in the proximal tibia for the tibial tray. The knee was then trialed and a 10-mm insert fit most appropriately. Attention was then drawn to patella. The patella was cleaned of all soft tissues. Multiple osteophytes were removed. Patellar thickness measured about 18 mm in thickness. There were some areas that were only about 10 mm thick. It was cut down to about 12 mm in thickness. The patella was sized to a size 31 patella. Lug holes were drilled for the 31 patella. The lateral osteophyte was removed. Patella button was placed. Knee was taken through range of motion and the patella tracked nicely with no thumbs test. Attention was then drawn toward placement of permanent components. All trial components were removed. Bone plug was placed in the distal femur to limit blood loss. A double batch of Palacos G cement was mixed. A left size a 62.5 posterior stabilized femoral component, size 63 tibial tray, a 10-mm posterior stabilized polyethylene insert, and a 31 x 8 all poly patella were then cemented in place. Knee was brought out into full extension until cement hardened. A final cement check was then performed. Pericapsular tissues were injected with a total of 100 mL of a combination of 20 mL of Exparel, 30 mL of normal saline, and 50 mL of 0.25% Marcaine with epinephrine. The patient did receive 1 gram of tranexamic acid. The tourniquet was then let down for final tourniquet time of 57 minutes. Hemostasis was assured with the use of electrocautery. The wound was once again irrigated. The extensor mechanism was then closed with a combination of #1 PDS suture and #1 Vicryl suture in a [id number] fashion. Extensor mechanism was checked and found to be intact. The subcutaneous tissues were then closed with 2-0 Dexon suture in a buried interrupted fashion. Skin was closed skin deedee. Leg was then cleaned and dried and a sterile dressing of Xeroform, 4 x 4, sterile cast padding and Mateo bandage were applied. The patient then transferred to the recovery room in stable condition. The patient tolerated the procedure well with no complications. All needle and sponge counts were correct at the end of the operation. I attest to the content of the Intraoperative Record and any orders documented therein. Any exception s are noted below.
--- NOTE | 2017-04-08 09:26 | DIAGNOSTIC IMAGING REPORT ---
LEFT KNEE 2 VIEWS History: Left total knee arthroplasty. Degenerative arthritis. Postop. FINDINGS: The patient is status post a left total knee arthroplasty. The hardware is intact. No fracture or dislocation. Skin deedee are in place. IMPRESSION: Left total knee arthroplasty. No evidence for hardware complication. Electronically signed by: Phillip Ramirez M.D. 04/08/2017 9:25 AM Dictated Date/Time: 04/08/2017 9:16 AM
--- NOTE | 2017-04-08 09:44 | Anesthesiology Progress Note ---
Anesthesia Post Op Note Date & Time Apr 08, 2017 at 09:44 Vital Signs Pain Intensity: 0 Vital Signs Past 12 Hours Date Time Temp Pulse Resp B/P (MAP) Pulse Ox O2 Delivery O2 Flow Rate FiO2 04/08/17 09:27 87 14 04/08/17 09:27 87 14 100 04/08/17 09:26 119/82 04/08/17 09:26 37.1 90 21 119/82 (90) 100 Nasal Cannula 2 04/08/17 09:22 89 13 100 04/08/17 09:22 89 13 04/08/17 09:21 127/70 04/08/17 09:17 94 21 100 04/08/17 09:17 94 21 04/08/17 09:15 117/68 04/08/17 09:12 93 15 04/08/17 09:12 91 15 100 04/08/17 09:07 93 17 04/08/17 09:07 91 17 100 04/08/17 09:06 93/67 04/08/17 09:03 92 15 100 04/08/17 09:03 92 15 04/08/17 09:02 92 16 100 04/08/17 09:02 92 16 100 04/08/17 09:02 93 16 04/08/17 09:02 93 16 04/08/17 09:01 114/60 04/08/17 09:01 114/60 04/08/17 08:57 97 16 100 04/08/17 08:57 97 16 100 04/08/17 08:57 97 16 04/08/17 08:57 97 16 04/08/17 08:56 132/64 04/08/17 08:56 132/64 04/08/17 08:52 15 04/08/17 08:52 98 15 04/08/17 08:52 15 04/08/17 08:52 98 15 04/08/17 08:51 115/66 04/08/17 08:51 115/66 04/08/17 08:48 118/65 04/08/17 08:48 118/65 04/08/17 08:47 100 15 04/08/17 08:47 36.0 100 15 118/65 (83) 100 Oxymask 10 04/08/17 08:47 15 04/08/17 08:47 100 15 04/08/17 08:47 15 04/08/17 06:24 36.8 93 18 159/86 97 Room Air Notes Mental Status: alert / awake / arousable, participated in evaluation Pt Amnestic to Procedure: Yes Nausea / Vomiting: adequately controlled Pain: adequately controlled Airway Patency, RR, SpO2: stable & adequate BP & HR: stable & adequate Hydration State: stable & adequate Anesthetic Complications: no major complications apparent
[2017-04-08] MEDS: KETOROLAC TROMETHAMINE 15 MG/ML VIAL IV. SCH ×3 (11:23→23:47)
[2017-04-08] MEDS: D5W AND 1/2NSS + 20MEQ KCL 1,000 ML IV SCH ×2 (11:23→21:43)
[2017-04-08] MEDS: FERROUS GLUCONATE 324 MG TAB PO SCH ×2 (12:38→17:44)
[2017-04-08] MEDS: TRAMADOL HCL 50 MG TAB PO PRN (13:45)
[2017-04-08] MEDS ORDERED: TRANEXAMIC ACID INJ 1,000 MG in SODIUM CHLORIDE 0.9% 100ML 100 ML IV SCH (17:00)
[2017-04-08] MEDS: CEFAZOLIN IV 2,000 MG in SYRINGE 0 ML IV SCH (17:44)
--- NOTE | 2017-04-08 18:26 | PROGRESS NOTE ---
DATE: 04/08/2017 SUBJECTIVE: A 71-year-old white female postop from a left knee replacement. She is doing pretty well. Having some pain. No chest pain or shortness of breath. Not feeling dizzy or lightheaded. OBJECTIVE: VITAL SIGNS: Temperature 36.8. Vital signs stable. GENERAL: Reveals a healthy pleasant elderly female. She is sitting up in bed, looks pretty comfortable. LUNGS: Clear to auscultation. HEART: Regular rate and rhythm. ABDOMEN: Soft, nontender, nondistended. EXTREMITIES: Grossly neurovascularly intact except as follows: Examination of the left lower extremity reveals the leg to be well aligned. She can dorsiflex and plantarflex her foot appropriately. Dressing is clean, dry and intact. Calves are soft and supple. X-RAYS: X-ray of the left knee from recovery room reviewed. It shows a cemented posterior stabilized total knee arthroplasty. Components looked to be in good position. No signs of problems. ASSESSMENT: A 71-year-old white female postop from a left knee replacement, doing well. She is neurologically intact. Some pain but seems manageable. PLAN: 1. DVT prophylaxis including thigh-high TEDs, SCDs, and aspirin twice a day. 2. PT/OT. Weightbearing as tolerated. Left total knee protocol. 3. Pain control. Doing pretty well with current pain regimen. 4. IV antibiotics x24 hours. 5. Disposition: Plan to discharge to home with some home health.
[2017-04-08] MEDS: LISINOPRIL/HCTZ 20/12.5MG TAB PO SCH (20:22)
[2017-04-08] MEDS: DOCUSATE SODIUM 100 MG CAP PO SCH (20:22)
[2017-04-08] MEDS: ASPIRIN 325 MG ECTAB PO SCH (20:22)
[2017-04-08] MEDS: SENNA 8.6 MG TAB PO SCH (20:22)
[2017-04-08] MEDS: AMITRIPTYLINE HCL 50 MG TAB PO SCH (20:23)
[2017-04-08] MEDS: FAMOTIDINE 20 MG TAB PO SCH (20:23)
[2017-04-08] MEDS: SIMVASTATIN 20 MG TAB PO SCH (20:23)
[2017-04-08] MEDS: ACETAMINOPHEN 500 MG TAB PO SCH (21:43)
[2017-04-09] MEDS: CEFAZOLIN IV 2,000 MG in SYRINGE 0 ML IV SCH (02:21)
[2017-04-09 04:10] VITALS: BP 124/73; PULSE 82; TEMP 36.5; O2SAT 94
[2017-04-09 06:13] LABS: HEMATOCRIT 36.3 % (37-47); HEMOGLOBIN 12.7 g/dL (12.0-16.0); MEAN CELL VOLUME 87.9 fL (80-100); MEAN CORPUSCULAR HEMOGLOBIN 30.8 pg (25-34); MEAN PLATELET VOLUME 9.1 fL (7.4-10.4); PLATELET COUNT 212 K/uL (130-400); RED CELL DISTRIBUTION WIDTH SD 41.7 fL (36.4-46.3); WHITE BLOOD COUNT 11.93 K/uL (4.8-10.8)
[2017-04-09] MEDS: KETOROLAC TROMETHAMINE 15 MG/ML VIAL IV. SCH ×4 (06:21→23:09)
[2017-04-09] MEDS: ACETAMINOPHEN 500 MG TAB PO SCH ×3 (06:21→21:40)
[2017-04-09 06:42] LABS: CALCIUM 8.7 mg/dl (8.5-10.1); CREATININE 0.75 mg/dl (0.60-1.20); POTASSIUM 3.6 mmol/L (3.5-5.1)
[2017-04-09 07:12] VITALS: BP 145/78; PULSE 81; TEMP 36.6; O2SAT 96
[2017-04-09] MEDS: D5W AND 1/2NSS + 20MEQ KCL 1,000 ML IV SCH (07:35)
--- NOTE | 2017-04-09 08:18 | PROGRESS NOTE ---
DATE: 04/09/2017 SUBJECTIVE: A 71-year-old white female postop day 1 from a left knee replacement. She is doing pretty well. She has some pain, but the medicines, doing reasonably well. No chest pain or shortness of breath. Not feeling dizzy or lightheaded. OBJECTIVE: VITAL SIGNS: Temperature 36.5. Vital signs stable. GENERAL: Reveals a healthy pleasant elderly female. She is lying in bed, looks pretty comfortable. LUNGS: Clear to auscultation. HEART: Regular rate and rhythm. ABDOMEN: Soft, nontender, nondistended. EXTREMITIES: Grossly neurovascularly intact except as follows: Examination of the left lower extremity reveals the leg to be well aligned. Dressing is clean, dry and intact. She can dorsiflex and plantarflex her foot appropriately. She is neurologically intact. LABORATORY DATA: Hemoglobin 12.7, hematocrit 36.3. Electrolytes are stable. ASSESSMENT: A 71-year-old white female postop day 1 from a left knee replacement, doing reasonably well. Pain is reasonably well controlled. She is neurologically intact. PLAN: 1. DVT prophylaxis include thigh-high TEDs, SCDs, and aspirin twice a day. 2. PT and OT. Weight bear as tolerated. Left total knee protocol. 3. Pain control, doing well with current pain regimen. 4. Disposition: Plan to discharge to home with some home health once adequately recovered.
[2017-04-09] MEDS: MULTIVITAMIN TAB PO SCH (08:43)
[2017-04-09] MEDS: FERROUS GLUCONATE 324 MG TAB PO SCH ×3 (08:43→18:00)
[2017-04-09] MEDS: DOCUSATE SODIUM 100 MG CAP PO SCH ×2 (08:43→21:28)
[2017-04-09] MEDS: METOPROLOL SUCC 50MG EXT REL TAB PO SCH (08:43)
[2017-04-09] MEDS: ASPIRIN 325 MG ECTAB PO SCH ×2 (08:43→21:27)
[2017-04-09] MEDS: TRAMADOL HCL 50 MG TAB PO PRN ×3 (08:46→18:02)
[2017-04-09 09:32] VITALS: BP 134/76; PULSE 79; O2SAT 96
[2017-04-09 09:55] VITALS: BP 132/75; PULSE 82; O2SAT 98
[2017-04-09] MEDS ORDERED: ULT50X PO (17:52)
[2017-04-09] MEDS ORDERED: ACET-24 PO (17:52)
[2017-04-09] MEDS ORDERED: ASPEC325 PO (17:52)
[2017-04-09] MEDS ORDERED: ONDA4TAB65 PO (17:52)
--- NOTE | 2017-04-09 17:55 | Discharge Instructions ---
Discharge Instructions Date of Service Apr 09, 2017. Admission Reason for Admission: Left Knee Degenerative Joint Disease Discharge Discharge Diagnosis / Problem: Left Knee Replacement Discharge Goals Goal(s): Decrease discomfort, Improve function, Increase independence, Improve disease control, Therapeutic intervention Activity Recommendations Activity Limitations: per Instructions/Follow-up section Weightbearing Status: Left weightbearing . Instructions / Follow-Up Instructions / Follow-Up ACTIVITY RECOMMENDATIONS: Physical Therapy: * You will go to physical therapy three times each week for four to six weeks after your surgery in order to regain your knee range of motion and to retrain your knee to work properly. * It is just as important to make sure you are getting your knee perfectly straight as it is to regain your knee bend. * Taking a pain pill an hour before therapy can help you have a more productive and comfortable therapy session. Home Exercise: * You were shown a series of exercises (heel props, heel slides, etc.) in the hospital. Do these exercises three to four times each day including the exercises you were shown in physical therapy. Walking: * Get up and walk several times each day. For the first four weeks, try not to stand or walk for more than one hour at a time. If you do stand or walk for more than one hour, you will not hurt anything, but your knee and leg will likely swell. * As you feel comfortable, you may change from the walker or crutches to a cane and then to independent walking. MEDICATIONS: New Medicine: * You will likely be taking one or more of these medications: 1. Tramadol - A quick and shorter-acting pain medication. Take one to two tablets every four to six hours to lessen your pain. 2. Aspirin - Thins your blood to lessen the chance of forming a blood clot. 3. Zofran - take for nausea * The most common side effects of pain medicine and iron are nausea and constipation. If nausea or constipation is too much of a problem or if you have any questions about your new medicines or doses, call [facility] at [phone]. We will try to help you manage these issues. VERY IMPORTANT TO READ AND REVIEW" Pain: * The immediate post-operative period after knee replacement surgery is often quite painful. * You are given a prescription for pain medicine. You should take it, as directed, when you need it, especially before physical therapy and before going to bed. Pain that interferes with sleep is very common and can last several months. * You will likely need pain medicine for the first four to six weeks. It will not stop all of the pain. The pain will lessen and as you feel better, you may change to milder pain medicine such as Tylenol. * The most common side effects of pain medicine are nausea and constipation, so don't take more than you need. SPECIAL CARE INSTRUCTIONS: TEDs/Elastic Stockings: * The white elastic stockings help limit swelling and prevent blood clots from forming in your legs. The more you wear them, the more they work. * Wear them for six weeks after knee replacement surgery and four weeks after partial knee replacement. Prevention of Infection: * Take antibiotics one hour before any dental cleaning, dental work, urological procedure, gastrointestinal procedure or any invasive surgery in order to prevent your new joint from getting infected. * You may get the antibiotics from the doctor performing the procedure or you may call our office at before and we will call in a prescription to the pharmacy of your choice. Things to Watch For: * Drainage from the incision site that occurs more than one week after your surgery. * Severely increased knee/leg pain or swelling. * Increased redness at the incision site. * Fever above 102 degrees Fahrenheit. * Unusual chest pain or shortness of breath. * Unusual pain or burning with urination. Call [facility] at with any of the above problems or if you have any questions about your medicines or recovery. FOLLOW UP VISIT: Make an appointment to see your doctor for approximately two weeks after surgery for a progress check and staple removal by calling the office at . Current Hospital Diet Patient's current hospital diet: Regular Diet Discharge Diet Recommended Diet: Regular Diet Procedures Procedures Performed: Left Total Knee Arthroplasty Pending Studies Studies pending at discharge: no Medical Emergencies . Who to Call and When: Medical Emergencies: If at any time you feel your situation is an emergency, please call [phone] immediately. . Non-Emergent Contact Non-Emergency issues call your: Surgeon . "Provider Documentation" section prepared by Dwight Richardson. . VTE Core Measure Inpt VTE Proph given/why not?: Other Anticoagulation, T.E.D. Stockings, SCD's
[2017-04-09 21:26] VITALS: BP 167/76; PULSE 90
[2017-04-09] MEDS: SIMVASTATIN 20 MG TAB PO SCH (21:27)
[2017-04-09] MEDS: AMITRIPTYLINE HCL 50 MG TAB PO SCH (21:27)
[2017-04-09] MEDS: LISINOPRIL/HCTZ 20/12.5MG TAB PO SCH (21:27)
[2017-04-09] MEDS: SENNA 8.6 MG TAB PO SCH (21:27)
[2017-04-09] MEDS: FAMOTIDINE 20 MG TAB PO SCH (21:27)
[2017-04-09 22:52] VITALS: BP 122/72; PULSE 83; TEMP 36.4; O2SAT 94
[2017-04-10] MEDS: ACETAMINOPHEN 500 MG TAB PO SCH (05:48)
[2017-04-10] MEDS: KETOROLAC TROMETHAMINE 15 MG/ML VIAL IV. SCH (05:49)
[2017-04-10 07:20] VITALS: BP 122/75; PULSE 77; TEMP 36.7; O2SAT 96
--- NOTE | 2017-04-10 07:51 | PROGRESS NOTE ---
DATE: 04/10/2017 SUBJECTIVE: A 71-year-old female postop day #2 from a left knee replacement. She is doing reasonably well. Significant amount of pain, but doing pretty well with pain medicines. No chest pain or shortness of breath. Not feeling dizzy or lightheaded. OBJECTIVE: VITAL SIGNS: Temperature is 36.4. Vital signs stable. GENERAL: Physical examination reveals a pleasant elderly female. She is lying in bed and looks reasonably comfortable. EXTREMITIES: Examination of the left leg reveals the dressing to be clean, dry and intact. She can dorsiflex and plantarflex her foot appropriately. She is neurologically intact. Calf is soft and supple. ASSESSMENT: A 71-year-old female postop day #2 from a left knee replacement, doing pretty well. Pain is reasonably well controlled. PLAN: 1. DVT prophylaxis including thigh-high TEDs, SCDs, and aspirin twice a day. 2. PT/OT. Weightbear as tolerated. Left total knee protocol. 3. Pain control. Doing pretty well with current pain regimen. 4. Disposition: Plan to discharge to home with some home health later today.
[2017-04-10 08:00] VITALS: BP 122/75; PULSE 77; TEMP 36.7; O2SAT 96
[2017-04-10] MEDS: ASPIRIN 325 MG ECTAB PO SCH (08:32)
[2017-04-10] MEDS: DOCUSATE SODIUM 100 MG CAP PO SCH (08:32)
[2017-04-10] MEDS: MULTIVITAMIN TAB PO SCH (08:32)
[2017-04-10] MEDS: FERROUS GLUCONATE 324 MG TAB PO SCH (08:32)
[2017-04-10] MEDS: TRAMADOL HCL 50 MG TAB PO PRN (08:33)
[2017-04-10] MEDS: METOPROLOL SUCC 50MG EXT REL TAB PO SCH (08:33)
--- NOTE | 2017-04-13 13:40 | DISCHARGE SUMMARY ---
ADMITTING PHYSICIAN AND SURGEON: Dr. Richardson. ADMITTING DIAGNOSIS: Left knee degenerative joint disease. SURGERY PERFORMED: Left total knee arthroplasty. SECONDARY DIAGNOSES: Hypertension, elevated cholesterol, mild obesity, gastroesophageal reflux disease, arthritis, fatty liver disease, mild sleep apnea. CONSULTS: None obtained. HISTORY AND PHYSICAL EXAMINATION: Well documented in the patient's chart. HOSPITAL COURSE: The patient was admitted on 04/08/2017 underwent total knee arthroplasty. She tolerated procedure well. There were no complications. She was transferred to the PACU postoperatively and later to the orthopedic floor for further care. She was given Ancef for antibiotic prophylaxis, ANA LUISA stockings, SCDs and aspirin for DVT prophylaxis. Hemoglobin, hematocrit and vital signs were monitored during her hospital stay and remained stable. She did not require any blood transfusions. There were no complications. By postoperative day 2, she was tolerating regular diet, pain was controlled with oral pain medicine. She was participating in physical therapy. On postop day 2, she was discharged home and set up with home health services, given printed discharge instructions including new prescriptions for extra strength Tylenol, aspirin 325 mg b.i.d., Zofran for nausea and tramadol for pain. Continue her home medications, continue physical therapy, weightbearing as tolerated, ANA LUISA stockings. Follow up in 10-12 days or sooner if there are problems or concerns.
== END 2017-04-10 11:40 | disposition home health service (06) | DRG 470 ==
LOC: C.ACU 05:03 → C.3E 06:35 → ENRESERV 09:29
PROVIDERS: ADMIT Orthopaedic Surgery Sports Medicine; ATTEND Orthopaedic Surgery Sports Medicine
PROC: 0SRD0J9 Replacement of Left Knee Joint with Synthetic Substitute, Cemented, Open Approach (ICD-10-PCS; principal; 2017-04-08 07:00)
DX: M17.12 Unilateral primary osteoarthritis, left knee (principal); I10 Essential (primary) hypertension; E66.9 Obesity, unspecified; K21.9 Gastro-esophageal reflux disease without esophagitis; G47.30 Sleep apnea, unspecified; Z79.899 Other long term (current) drug therapy; Z68.33 Body mass index [BMI] 33.0-33.9, adult; Z96.642 Presence of left artificial hip joint; Z96.651 Presence of right artificial knee joint

== ENCOUNTER 2022-03-02 08:28 | Observation (INO) ==
--- NOTE | 2022-02-02 20:50 | PAT Medication Instructions ---
Medication Instructions Date of Service February 02, 2022 Home Medications amitriptyline 50 mg tablet 50 mg PO HS amoxicillin 500 mg capsule 2,000 mg PO DIRECTED PRN 1 HR PRIOR TO DENTAL APPT. famotidine 20 mg tablet 20 mg PO HS lisinopril 20 mg-hydrochlorothiazide 12.5 mg tablet 1 tab PO HS metoprolol succinate 50 mg tablet,extended release 24 hr 50 mg PO QAM pantoprazole 20 mg tablet,delayed release 20 mg PO DAILYBB simvastatin 20 mg tablet 20 mg PO HS aspirin 81 mg tablet,delayed release 81 mg PO HS Metamucil 1 dose PO QAM calcium carbonate 600 mg calcium (1,500 mg) tablet (Calcium) 600 mg PO HS Continue as directed amoxicillin 500 mg capsule 2,000 mg PO DIRECTED PRN 1 HR PRIOR TO DENTAL APPT. (if needed) ASK your prescriber and surgeon amitriptyline 50 mg tablet 50 mg PO HS aspirin 81 mg tablet,delayed release 81 mg PO HS DO NOT take the morning of surgery Metamucil 1 dose PO QAM Take morning of surgery With a small sip of water, OTHERWISE NOTHING TO EAT OR DRINK AFTER MIDNIGHT: metoprolol succinate 50 mg tablet,extended release 24 hr 50 mg PO QAM pantoprazole 20 mg tablet,delayed release 20 mg PO DAILYBB Take evening before surgery famotidine 20 mg tablet 20 mg PO HS lisinopril 20 mg-hydrochlorothiazide 12.5 mg tablet 1 tab PO HS simvastatin 20 mg tablet 20 mg PO HS calcium carbonate 600 mg calcium (1,500 mg) tablet (Calcium) 600 mg PO HS Other Notes If you have any questions please call us at [phone] or [phone] or [phone] or [phone]
--- NOTE | 2022-02-08 13:03 | Anesthesiology Consultation ---
Date of Service February 08, 2022 Assessment & Plan (1) Encounter for pre-operative examination: Chart Review Chart Review: Acceptable Risk for Surgery (pending cardio clearance 02/26/22) and Patient seen in Pre Admission Testing -Awaiting cardio clearance scheduled 02/26/22 Per PAT appt on 02/08/22, patient denies any recent travel or large group activities. Pt is vaccinated for Covid. Will leave to surgeon's discretion if preop Covid testing needed. Educated on importance of using Covid precautions one week prior to surgery Per pulmonary clearance letter 02/04/2022= Patient is at moderate risk for pulmonary complications from planned surgery. She has no absolute contraindications to surgery from a pulmonary standpoint. 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 No clinical or laboratory evidence of an alternative diagnosis such as endocarditis. No symptoms of stroke or TIA. Discussed that the natural history of an asymptomatic lesion of this nature is unknown but they do present a risk of stroke and other embolic phenomenon. In the absence of prior symptomsin conjunction with her elevated surgical risk due to her age and comorbidities, I feel that medical therapy with antiplatelet agents is probably lower risk alternative than surgical exploration and removal. Patient is in agreement. Teaching & Discussion Pre-Anesthesia Teaching/Discussion Notes: Instructed NPO after midnight before surgery,except medications with 15 cc of water. Medication instructions provided according to the PAT guidelines. History Surgery Operation Date: 03/02/22 12:30 Proposed Procedures p Left Patellectomy with Extensor Mechanism Repair - Dwight Richardson MD Height/Weight Height: 5 ft 3.5 in Weight: 64.3 kg Allergies Allergy/AdvReac Type Severity Reaction Status Date / Time epinephrine AdvReac Intermediate LEGS Verified 02/02/22 12:46 BECAME VERY JUMPY Medications Home Medications Medication Instructions Recorded Confirmed Last Taken amitriptyline 50 mg tablet 50 mg PO HS 03/13/21 02/02/22 03/12/21 amoxicillin 500 mg capsule 2,000 mg PO DIRECTED PRN 1 HR 03/13/21 02/02/22 Unknown PRIOR TO DENTAL APPT. famotidine 20 mg tablet 20 mg PO HS 03/13/21 02/02/22 03/12/21 lisinopril 20 1 tab PO HS 03/13/21 02/02/22 03/13/21 mg-hydrochlorothiazide 12.5 mg tablet metoprolol succinate 50 mg 50 mg PO QAM 03/13/21 02/02/22 03/13/21 tablet,extended release 24 hr pantoprazole 20 mg tablet,delayed 20 mg PO DAILYBB 03/13/21 02/02/22 03/13/21 release simvastatin 20 mg tablet 20 mg PO HS 03/13/21 02/02/22 03/12/21 aspirin 81 mg tablet,delayed 81 mg PO HS 09/15/21 02/02/22 Unknown release Metamucil 1 dose PO QAM 02/02/22 02/02/22 Unknown calcium carbonate 600 mg calcium 600 mg PO HS 02/02/22 02/02/22 Unknown (1,500 mg) tablet (Calcium) Past Medical History Medical History Abnormal echocardiogram [facility]IRIAM 09/22/2021 [facility]- suggestive of papillary fibroelastoma. Follows with [facility] Cardiology. Currently under observation Chronic respiratory failure with hypoxia Breathing stable - 2lpm PRN during the day (pt states pulm urges her to use it more) GERD (gastroesophageal reflux disease) Well controlled and stable History of COVID-19 DX'D 03/2021 PCP OFFICE-COLD SYMPTOMS, FEVER, BODY ACHES-RECOVERED AT HOME- RESOLVED Hyperlipidemia Hypertension Pulmonary fibrosis F/U DR MICHAEL AVITIA Sleep apnea Uses CPAP - recent sleep study- oxygen not needed at night Vertigo Occ- no current issues Exercise / Class Metabolic Activity III < 4 Walking/Shop/Light housework (no chest pain, mild SOB- with short distances/flat surface ambulation ) Past Family History Family History Mother Family history of diabetes mellitus Past Surgical History Surgical History History of bilateral tubal ligation History of cataract surgery R/L History of cholecystectomy History of colonoscopy X 2 History of revision of total replacement of left hip joint History of total hip arthroplasty LEFT-MABLE AND REVISION History of total knee replacement R/L. Left 04/08/17: SAB L3-L4 + PNB. No postop issues per anesthesia progress note. History of transesophageal echocardiography (MIRIAM) Past Anesthesia History No Hx of Anesthesia Complications and No Family Hx of Anesthesia Complications History of PONV No Hx of PONV and No Hx of Motion Sickness Social History Smoking Status: Former smoker Do You Dip or Chew Tobacco: No Smoking End Date: 1981 Hx Alcohol Use: No Hx Substance Use: No substance use type: does not use Review of Systems Occ cough- chronic- stable/mild Patient denies chest pain, shortness of breath at rest, wheezing, palpitations. No hx of seizures, stroke, MD. No hx of blood clots or blood transfusions Physical Exam Vital Signs VITALS BP 136/83 P 94 TEMP 97.7 SP02 97% on RA RESP 16 Constitutional no acute distress ENMT Mouth: no TMJ clicking Thyromental Distance: < 3.5 Finger Breadths (2.5) Mallampati Class: III Permanent bridge to bottom left teeth Neck + limited neck extension Respiratory normal respiratory effort; no respiratory distress Auscultation: lungs clear to auscultation bilaterally; no wheezes Cardiovascular Rate/Rhythm: regular rate and regular rhythm Heart Sounds: no murmur Vessels: no carotid bruit Musculoskeletal Spine: no pain with cervical ROM Extremities: extremities normal to inspection Psychiatric Orientation: alert Lab Results Anesthesia Preop Results Results Anesthesia Widget: WBC 12.44 K/ul (4.8-10.8) H 02/08/22 Hgb 15.6 g/dl (12.0-16.0) 02/08/22 Hct 45.6 % (34.1-44.9) H 02/08/22 Plt 289 K/uL (130-400) 02/08/22 Na 140 mmol/L (136-145) 02/08/22 K 4.0 mmol/L (3.5-5.1) 02/08/22 Cl 102 mmol/L (98-107) 02/08/22 CO2 32 mmol/L (21-32) 02/08/22 BUN 15 mg/dl (6-23) 02/08/22 Creat 0.74 mg/dl (0.6-1.2) 02/08/22 Glucose Level 91 mg/dl (70-99(Fasting)) 02/08/22 PT 10.7 Seconds (9.0-12.0) 02/08/22 PTT 26.5 Seconds (21.0-31.0) 02/08/22 INR 1.0 (0.9-1.1) 02/08/22 Blood Type B Negative 02/08/22 Antibody Screen NEGATIVE 02/08/22 Testing Electrocardiogram Date: 08/05/21 Findings: + NSR @ (90bpm ) Biatrial enlargement Left axis deviation RBBB When compared with EKG from September 25, 2019- no significant change was found per cardio Chest X-Ray Date: 02/08/22 FINDINGS: Cardiac silhouette is enlarged. Progressive worsening of the reticular bilateral interstitial opacities, left greater than right. Atherosclerosis of the aorta. No pneumothorax, pleural effusion or airspace consolidation. Bones appear grossly intact with thoracolumbar levoscoliosis. Cholecystectomy. Moderate colonic fecal retention. IMPRESSION: Progressive worsening (since 2016) of the diffuse left greater than right reticular interstitial opacities suggestive of pulmonary fibrosis. Echocardiogram Date: 09/22/21 EF: 55 to 60% LV Function: normal RWMA: + none Other Findings: no LVH Aortic valve is trileaflet Focal thickening of the noncoronary cusp and left coronary cusp. Mobile pedunculated echodensity on the aortic aspect of the aortic valve, originating at the commissure of the noncoronary cusp and left coronary cusps with appearance suggestive of papillary fibroblastoma. Round mobile echodensity measures 0.72 cm x 0.78 cm x 0.43 cm Trace aortic regurgitation is present. Aortic stenosis is absent. Mild MR. Stress Test Date: 04/07/20 Exercise Low HR and/or low workload achieved reduces the sensitivity of this test for the detection of coronary artery disease or ischemia O2 desat 81% immediately post activity Nondiagnostic Normal LV wall motion EF 65-69% Moderate cLVH Other Testing Chest CT 09/10/21= Findings consistent with pulmonary fibrosis are again noted, not significantly changed since the prior chest CT dated 11/25/2020. No pleural effusions or pneumothorax. COVID-19 Risk Screen Screening Information COVID-19 Screen Date: 02/08/22 Exposure 21 Days Family/Household +COVID Last 21 Days: No Exposure 10 Days Any COVID Exposure Last 10 Days: No Symptoms Last 10 Days Experienced COVID Sx Last 10 Days: No + COVID 0-90 Days COVID + in Last 0-90 Days: No Risk Plan COVID Risk Plan: No Risk Identified Patient Education COVID Preop Screening Education Complete: Yes
[~2022-03-02 08:28] MED LIST changes: +ACETAMINOPHEN 500 MG TAB PO SCH; -AMOX500C3 PO; -AMT50 PO; +BUPIVACAINE LIPOSOME/PF 266 MG, BUPIVACAINE/EPINEPHRINE 50 ML, SODIUM CHLORIDE 0.9% 30 ... INFIL SCH; -CALC500C70 PO; +CeleBREX 200 MG CAP PO SCH; -FAMO20TA11 PO; +FAMOTIDINE 20 MG TAB PO SCH; -LISI-787 PO; +LR 15ML/HR IV SCH; +LR 60ML/HR IV SCH; -METO50TA7 PO; +METOCLOPRAMIDE HCL 10 MG TABLET PO SCH; -MULT-506 PO; -OMEG10007 PO; +TRANEXAMIC ACID 1,000 MG **IV Intra-op IV SCH; -ZCR20 PO; -[UNRECOGNIZED DRUG - CODE] PO; +ceFAZolin 2000MG 2,000 MG/15 ML SYR IV SCH
--- NOTE | 2022-03-02 09:26 | History & Physical Bridge Note ---
Date of Service March 02, 2022 History & Physical Bridge Note I have examined the patient, reviewed the History & Physical and in the interval since the performance of the History & Physical I have noted the following changes of clinical significance: no changes noted
[2022-03-02] MEDS ORDERED: MIDAZOLAM HCL 1 MG/ML 2ML VIAL ONE ×2 (10:49→10:50)
[2022-03-02] MEDS ORDERED: ePHEDrine sulfate 50 MG/ML AMP IV PRN (11:21)
[2022-03-02] MEDS ORDERED: ONDANSETRON INJ 2 MG/ML 2 ML VIAL IV PRN ×2 (11:21→15:41)
[2022-03-02] MEDS ORDERED: KETOROLAC 30 MG/ML VIAL IV PRN (11:21)
[2022-03-02] MEDS ORDERED: HYDROmorphone INJ 1 MG/ML SYRINGE IV PRN (11:21)
[2022-03-02] MEDS ORDERED: ATROPINE SULFATE 0.1 MG/ML 10ML SYR IV PRN (11:21)
[2022-03-02] MEDS ORDERED: PROPOFOL IV EMULSION 10 MG/ML 20 ML VIAL IV ONE (11:26)
[2022-03-02] MEDS ORDERED: BUPIVACAINE 0.5 % 5 MG/1 ML PF 10ML VIAL ONE (11:36)
[2022-03-02] MEDS ORDERED: BUPIVACAINE/EPINEPHRINE 0.5% MPF 1:200,000 10 ML VIAL ONE (12:05)
[2022-03-02] MEDS ORDERED: ePHEDrine sulfate 50 MG/ML AMP ONE (12:32)
[2022-03-02] MEDS ORDERED: PHENYLEPHRINE HCL 10 MG/ML VIAL ONE (12:42)
--- NOTE | 2022-03-02 13:48 | Operative Report ---
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 The extensor mechanism was fragmented into multiple pieces. The polyethylene patella button was loose but fixed to the distal fragment. The knee implant itself was well fixed and well aligned and functioning well. Fluids 1000 cc Specimens None Drains None Anesthesia Type Spinal MAC Complications none Disposition Accompanied Patient To Recovery: No Indications Patient is 76-year-old female with multiple medical comorbidities who has pretty advanced pulmonary fibrosis who underwent a left total knee replacement 5 years ago. She did quite well for the first 3 years and then started having repeated falls and weakness in her leg. She was seen in clinic and had an acute chronic extensor at mechanism disruption. She was treated conservatively and continue to have persistent problems with instability and weakness. We discussed treatment options and she elected to proceed with attempted surgical repair in order to make this better. The plan was to take out the patella with a very prominent and do a soft tissue repair. She was fully aware that this is unlikely to make her knee normal but hopefully improve the function significant degree. Description of Procedure The patient was taken to the operating, identified, placed on the operating table supine position protectors were properly padded. IV antibiotics tried by anesthesia team. A spinal anesthetic been implemented holding area. Gonzales catheter was placed in sterile fashion. Left thigh tent was then placed in left lower extremities and prepped and draped in usual sterile fashion. The left leg was elevated exsanguinated with use of an Esmarch in terms playset 300 mmHg. An anterior approach to the left knee was then performed through a longitudinal incision using the previous incision. PDS used the central part of the incision. Sharp dissection scalp through subcutaneous tissues down the extensor mechanism. The loose patella button was quite evident and sticking out and prominent. I removed this. I remove the scar tissue from the distal portion of the proximal pole patella. The quad tendon was fairly mobile considering the chronicity of the injury. I did shell out the distal bone fragment. I then extended the medial and lateral retinacular components in order to define the injury a bit further. I then used a #5 Tycron suture and placed a Krakw stitch through the patella tendon. This was then placed through the bone fragment at the superior pole of the remaining patella. I felt her patella bone was probably better to provide some fixation then soft tissue to soft tissue or . The bone fragment was too small to drill holes through. I then mobilized the quad. We able to pull this down to the patella tendon to get a good approximation. This was then tied. We then repaired the medial and lateral retinacular extensions with #2 Tycron suture in a [id number] fashion. The knee was injected with 30 cc of half percent Marcaine with epinephrine. The tourniquet was let down for turn time 37 minutes. Hemostasis reduced electrocautery. The subcutaneous tissues then closed with 2-0 Dexon suture in buried interrupted fashion skin was closed skin deedee. Leg was then cleaned and dried a sterile dressing was Xeroform, 4 x 4's, ABD pad, sterile cast padding, Mateo bandage were applied. A knee immobilizer was then applied. The patient was then transferred to the recovery room in stable condition. The patient tolerated procedure well and there were no complications. Miah Morales, my PA, was present for the entire procedure. His assistance was required for proper patient positioning, prepping and draping, surgical exposure, perform the technical details the operation, closure of the wound, placement of sterile bandage and the knee immobilizer. I attest to the content of the Intraoperative Record and any orders documented therein. Any exceptions are noted below.
--- NOTE | 2022-03-02 14:30 | Anesthesiology Progress Note ---
Date of Service March 02, 2022 Anesthesia Post Procedure Vital Signs Vital Signs: Temp Pulse Pulse Resp BP Pulse Ox O2 Del Method 03/02/22 14:15 36.4 C L 76 16 105/63 94 Room Air 03/02/22 14:05 78 18 106/59 L 95 Oxymask 03/02/22 13:55 80 21 108/57 L 97 Oxymask 03/02/22 13:45 87 22 108/58 L 98 Oxymask 03/02/22 13:38 36.7 C 85 16 99/53 L 98 Oxymask 03/02/22 08:57 36.4 C L 98 H 20 130/78 96 Room Air O2 Flow Rate 03/02/22 14:15 03/02/22 14:05 2 03/02/22 13:55 5 03/02/22 13:45 7 03/02/22 13:38 9 03/02/22 08:57 Pain Intensity Left Knee: Pain Intensity: 2 Transfer of Care Handoff Completed per policy Notes Mental Status: alert / awake / arousable and participated in evaluation Patient Amnestic to Procedure: Yes Nausea / Vomiting: adequately controlled Pain: adequately controlled Airway Patency, RR, SpO2: stable & adequate BP & HR: stable & adequate Hydration State: stable & adequate Anesthetic Complications: no major complications apparent and Pt Satisfied with anesthetic care
[2022-03-02] MEDS ORDERED: MAGNESIUM HYDROXIDE SUSP 30 ML UDC PO PRN (15:41)
[2022-03-02] MEDS ORDERED: METOCLOPRAMIDE HCL INJ 5 MG/ML 2 ML VIAL IV PRN (15:41)
[2022-03-02] MEDS ORDERED: HYDROmorphone INJ 0.5 MG/0.5 ML SYR IV PRN (15:41)
[2022-03-02] MEDS ORDERED: oxyCODONE HCL IR 5 MG TAB (IMMEDIATE RELEASE) PO PRN (15:41)
[2022-03-02] MEDS ORDERED: ALUMINUM/MAGNESIUM SUSP 30 ML UDC PO PRN (15:41)
[2022-03-02] MEDS ORDERED: NALOXONE HCL 0.4 MG/1 ML VIAL/CARP IV PRN (15:41)
[2022-03-02] MEDS ORDERED: bisacodyL 10 MG SUPP PR PRN (15:41)
[2022-03-02] MEDS: SODIUM CHLORIDE 0.9% 1000ML 1,000 ML IV SCH (16:19)
[2022-03-02] MEDS: ACETAMINOPHEN 500 MG TAB PO SCH ×2 (16:20→21:52)
[2022-03-02] MEDS: ceFAZolin 1000MG 1,000 MG/7.5 ML SYR IV SCH (19:58)
[2022-03-02] MEDS: DOCUSATE SODIUM 100 MG CAP PO SCH (20:45)
[2022-03-02] MEDS: ASPIRIN 81 MG ECTAB PO SCH (20:45)
[2022-03-02] MEDS ORDERED: SENNA 8.6 MG TAB PO SCH (21:00)
[2022-03-02] MEDS ORDERED: LISINOPRIL/HCTZ 20/12.5MG 1 TAB TAB PO SCH (21:00)
[2022-03-02] MEDS ORDERED: SIMVASTATIN 20 MG TAB PO SCH (21:00)
[2022-03-02] MEDS ORDERED: CALCIUM CARBONATE 1250MG TAB PO SCH (21:00)
[2022-03-02] MEDS ORDERED: AMITRIPTYLINE HCL 50 MG TAB PO SCH (21:00)
[2022-03-02] MEDS ORDERED: FAMOTIDINE 20 MG TAB PO SCH (21:00)
[2022-03-03] MEDS: SODIUM CHLORIDE 0.9% 1000ML 1,000 ML IV SCH (01:35)
[2022-03-03] MEDS: ceFAZolin 1000MG 1,000 MG/7.5 ML SYR IV SCH (02:53)
[2022-03-03] MEDS: ACETAMINOPHEN 500 MG TAB PO SCH (05:53)
[2022-03-03] MEDS ORDERED: PANTOprazole 40 MG TAB PO SCH (06:30)
[2022-03-03 06:39] LABS: BUN Creatinine Ratio 18.5 (10-20); Calcium 8.6 mg/dl (8.5-10.1); Est GFR (African American) 81.8 ml/min; Est GFR (Non-African American) 70.5 ml/min; Potassium 3.8 mmol/L (3.5-5.1)
[2022-03-03 08:00] LABS: Hematocrit (blood only) 39.8 % (34.1-44.9); Hemoglobin 13.5 g/dl (12.0-16.0); Mean Corpuscular Hemoglobin 30.9 pg (25.0-34.0); Mean Corpuscular Hgb Conc 33.9 g/dL (32.0-36.0); Mean Corpuscular Volume 91.1 fL (80.0-100.0); Mean Platelet Volume 9.1 fL (9.4-12.3); Platelet Count 257 K/uL (130-400); RDW Coefficient of Variation 12.3 % (11.5-14.5); RDW Standard Deviation 40.9 fL (36.4-46.3); Red Blood Count 4.37 M/uL (3.93-5.22)
[2022-03-03] MEDS: ASPIRIN 81 MG ECTAB PO SCH (08:38)
[2022-03-03] MEDS: DOCUSATE SODIUM 100 MG CAP PO SCH (08:38)
[2022-03-03] MEDS ORDERED: MULTIVITAMIN TAB PO SCH (09:00)
[2022-03-03] MEDS ORDERED: METOPROLOL SUCC 50MG EXT REL TAB PO SCH (09:00)
[2022-03-03] MEDS ORDERED: DOCUSATE SODIUM/SENNA 50/8.6MG TAB PO SCH (09:00)
[2022-03-03] MEDS ORDERED: PSYLLIUM or GUAR GUM FIBER POWDER PACKET PO SCH (09:00)
--- NOTE | 2022-03-03 11:02 | Orthopedic Progress Note ---
Date of Service March 03, 2022 Assessment & Plan (1) Patella fracture: -Doing well on POD 1 -WBAT LLE with immobilizer in place. No knee flexion for 6 weeks. PT/OT evaluation today -Pain controlled with current regimen -Aspirin 81 mg BID for DVT ppx; will need for 4 weeks -Post op abx ordered Dispo: Likely discharge home today with home health pending PT/OT evaluation. Subjective Feels fine today. Minimal pain. Ambulating without much issue. Review of Systems All systems reviewed & are unremarkable except as noted in HPI & below. Physical Exam General: Pleasant 76 y/o/f resting comfortably in bed in NAD. AAO x 4 LLE: Dressing is C/D/I. Immobilizer in place. Minimal incisional tenderness. Distally NVI . Results & Data Results & Data Laboratory Results Reviewed . Diagnostic Findings N/A . PG Care Time/CCT Total # of Minutes Spent Total Time Spent with Patient: Total time spent is greater than 50% in coordination of care (as documented) at patient's floor/unit and/or counseling patient: Coding Level of Care Code 20595 Post Operative Follow-Up Diagnoses Patella fracture S82.009A
--- NOTE | 2022-03-06 07:21 | Discharge Summary ---
Date of Service March 06, 2022 Discharge Data Procedures Performed Operation Date: 03/02/22 10:40 Actual Procedures p Left Patellectomy with Extensor Mechanism Repair(Left) - Dwight Richardson MD Hospital Course (1) Patella fracture: This is a 76 year old patient admitted on 03/02/22 and underwent left patellectomy with extensor mechanism repair following a patella fracture. She tolerated the procedure well and there were no complications. Transferred to the PACU post op and later to the orthopedic floor for further care. She was given ancef for antibiotic prophylaxis. She was also given ANA LUISA stockings, SCDs, and aspirin for DVT prophylaxis. Hemoglobin, hematocrit, and vital signs were monitored during her hospital stay and remained stable. Did not require any blood transfusions. There were no complications during her hospital stay. By post op day #1 the patient was tolerating a regular diet, pain was reasonably controlled with oral pain medicine, and she was participating in physical therapy. On post op day #1 the patient was discharged home and set up with home health care. She was given printed discharge instructions including prescriptions for extra strength tylenol, aspirin, zofran, senokot, and oxycodone. Continue physical therapy, weight bearing as tolerated with the knee immobilizer. No knee range of motion. Follow up approximately 2 weeks post op or sooner if there are problems or concerns. Coding Level of Care Code None Diagnoses Patella fracture S82.009A
== END 2022-03-03 14:13 | disposition home health service (06) ==
LOC: ASU 08:28 → INTOOBSV 13:39 → 3W 13:39
DX: Z79.899 Other long term (current) drug therapy; M66.262 Spontaneous rupture of extensor tendons, left lower leg; Z88.8 Allergy status to other drugs, medicaments and biological substances; Z87.891 Personal history of nicotine dependence; S82.002A Unspecified fracture of left patella, initial encounter for closed fracture; Z86.16 Personal history of COVID-19; Z79.82 Long term (current) use of aspirin